=== PATIENT | female | born 1990 | race Caucasian/White ===

== ENCOUNTER → 2016-11-21 | Outpatient (CLI) | payer BC ==
[~2016-11-21] MED LIST: IBUP-1773 PO; PNV91TAB3 PO
--- OUTSIDE RECORDS SUMMARY | 2016-11-21 16:41 | XMS REPORT ---
Author Author ANITA WHITT Organization [employer] Address Unknown Phone Unavailable Care Team Providers Care Veneer Taping Machine Operator Name Role Phone ANITA WHITT Unavailable Allergies No Known Allergies Problems Problem Type Condition Code Onset Dates Condition Status Assessment Encounter for immunization Z23 Active Medications No Known Medications Procedures Procedure Coding System Code Date SINGLE IMMUNIZATION ADMIN CPT-4 77778 Jul 08, 2015 FLUARIX QUAD (3 & UP)-GSK-2014 CPT-4 45536 Jul 08, 2015 Results No Known Results Immunizations Vaccine Administration Date FLUARIX QUAD (3 & UP)-GSK-2014Jul 08, 2015 Summary Purpose [employer] Submission
--- NOTE | 2016-11-21 19:46 | Diagnostic Imaging Report ---
Transvaginal pelvic ultrasound. INDICATION: Heavy bleeding. Positive test. FINDINGS: The uterus is 6.2 x 2.4 x 4 cm. Endometrial stripe is 3 mm in thickness. There is no intrauterine seen at this time. The left ovary is 2.9 x 2.3 x 1.7 cm. There is a follicle measuring 1.3 cm with minimal internal echogenicity seen. The right ovary is obscured by bowel gas. No significant hemorrhage or solid mass seen. Trace amount of free fluid in the pelvis is noted. IMPRESSION: 1. The right ovary is not seen. Complicated follicle suggested measuring 1.3 cm in the left ovary. 2. No intrauterine is seen. Findings may be relate to normal , failed , or occult ectopic . Serial beta-hCG and followup ultrasound is suggested. Dictated by: Dictated on workstation # [id number]
== END ==
LOC: RAD 16:39
PROVIDERS: ATTEND Obstetrics & Gynecology
DX: O20.0 Threatened abortion (principal)
CPT/HCPCS: 76817

== ENCOUNTER 2016-12-20 05:57 | Day surgery (SDC) | payer BC ==
[~2016-12-20] VITALS: Ht 162.6 cm; Wt 77.1 kg
[2016-12-20] MEDS: LACTATED RINGERS 1,000 ML IV PRN ×2 (06:10→07:40)
[2016-12-20 06:20] VITALS: BP 112/51
[2016-12-20] MEDS ORDERED: proPOfol 200 MG/20 ML (DIPRIVAN) VIAL IV ONE (06:51)
[2016-12-20] MEDS ORDERED: MIDAZOLAM 2 MG/2 ML (VERSED) VIAL ONE (06:51)
[2016-12-20] MEDS ORDERED: ROCURONIUM 50 MG/5 ML (ZEMURON) VIAL IV ONE (06:51)
[2016-12-20] MEDS ORDERED: LIDOCAINE PF 2% 10 ML (XYLOCAINE) AMP ONE (06:51)
[2016-12-20] MEDS ORDERED: ONDANSETRON 4 MG/2 ML (SDV) Z0FRAN ONE (06:51)
[2016-12-20] MEDS ORDERED: LIDOCAINE JELLY 2% (XYLOCAINE) 5 ML TUBE ONE (06:51)
[2016-12-20] MEDS ORDERED: LACTATED RINGERS 1,000 ML IV ONE (06:51)
[2016-12-20] MEDS ORDERED: fentaNYL INJECTION 100 MCG/2 ML AMP ONE (06:52)
[2016-12-20 06:54] LABS: BASOPHILS # (AUTO) 0.1 10^3/uL (0.0-0.1); BASOPHILS % (AUTO) 1 % (0-10); EOSINOPHILS # (AUTO) 0.2 10^3/uL (0.0-0.3); EOSINOPHILS % (AUTO) 2 % (0-10); LYMPHOCYTES # (AUTO) 3.3 X 10^3 (1.0-4.0); LYMPHOCYTES % (AUTO) 38 % (12-44); MEAN CORPUSCULAR HEMOGLOBIN 29 PG (25-34); MEAN CORPUSCULAR HGB CONC 33 G/DL (32-36); MEAN CORPUSCULAR VOLUME 90 FL (80-99); MEAN PLATELET VOLUME 9.9 FL (7.4-10.4); MONOCYTES # (AUTO) 0.8 X 10^3 (0.0-1.0); MONOCYTES % (AUTO) 9 % (0-12); NEUTROPHILS # (AUTO) 4.5 X 10^3 (1.8-7.8); NEUTROPHILS % (AUTO) 51 % (42-75); PLATELET COUNT 269 10^3/uL (130-400); RED BLOOD COUNT 4.49 10^6/uL (4.35-5.85); RED CELL DISTRIBUTION WIDTH 13.7 % (10.0-14.5); WHITE BLOOD COUNT 8.9 10^3/uL (4.3-11.0)
--- NOTE | 2016-12-20 07:10 | Progress Note-Pre Operative ---
Pre-Operative Progress Note H&P Reviewed The H&P was reviewed, patient examined and no changes noted. Date H&P Reviewed: Dec 20, 2016 Time H&P Reviewed: 07:00 Pre-Operative Diagnosis: Incomplete Ab ULISES ENGLISH DO Dec 20, 2016 7:10 am
[2016-12-20] MEDS ORDERED: SEVOFLURANE (ULTANE) 15 ML INHAL SOLN ONE (07:33)
[2016-12-20] MEDS ORDERED: PNV91TAB3 PO ×2 (07:41)
[2016-12-20] MEDS ORDERED: D5 LR IV SOLUTION 1,000 ML IV SCH (07:54)
[2016-12-20] MEDS ORDERED: IBUP-1773 PO ×2 (07:57)
--- NOTE | 2016-12-20 07:58 | Discharge Inst-Women's Service ---
Discharge Inst-Women's Serv Depart Medication/Instructions New, Converted or Re-Newed RX: RX on Chart Consults/Follow Up Additional Follow Up: Yes Orders/Referrals Follow up on Saturday for lab draw, follow up with either Dr. Panchal or Dr. English in the next 2-3 weeks. Activity Activity: Activity as Tolerated Driving Instructions: You May Drive (do not drive today 12/20/2016) NO SMOKING: NO SMOKING Nothing Inside Vagina: No Douching, No Boron, No Tampons Diet Discharge Diet: No Restrictions Symptoms to Report to : Bleeding Excessive, Pain Increased, Fever Over 101 Degrees F, Vaginal Bleeding Increase, Questions/Concerns For Any Problems or Questions: Contact Your Physician Skin/Wound Care Bathing Instructions: Shower (x 1 week) ULISES ENGLISH DO Dec 20, 2016 07:58
[2016-12-20] MEDS ORDERED: KETOROLAC 30 MG/ML VIAL ONE (07:59)
[2016-12-20] MEDS ORDERED: ONDANSETRON 4 MG/2 ML (SDV) Z0FRAN IVP PRN ×2 (08:00)
[2016-12-20] MEDS ORDERED: morphine INJ 10 MG/ML 1ML (SYR OR VIAL) IVP PRN (08:00)
[2016-12-20] MEDS ORDERED: MEPERIDINE (DEMEROL) INJ 50 MG/ML IVP PRN (08:00)
[2016-12-20] MEDS ORDERED: APAP 300 MG/CODEINE 30 MG (TYLENOL #3) TAB PO ONE (08:00)
[2016-12-20] MEDS ORDERED: KETOROLAC 30 MG/ML VIAL IVP ONE (08:00)
[2016-12-20 08:40] VITALS: BP 118/73
[2016-12-20 09:10] VITALS: BP 113/73
[2016-12-20 09:15] VITALS: BP 113/73
--- NOTE | 2016-12-21 09:35 | OPERATIVE REPORT ---
PROCEDURE PHYSICIAN: ULISES ENGLISH DATE OF PROCEDURE: PREOPERATIVE DIAGNOSIS: 26-year-old female with incomplete . POSTOPERATIVE DIAGNOSES: 1. 26-year-old female with incomplete . 2. Some right adnexal fullness. PROCEDURE: Suction D\T\C. SURGEON: Dr. Ulises English. ANESTHESIA: LMA. ESTIMATED BLOOD LOSS: 50 mL. URINE OUTPUT: 100 mL, clear at the end of the procedure, drained by straight catheterization. FLUIDS: 1200 mL lactated ringer solution. FINDINGS: A nonenlarged uterus with a scant amount of endometrial tissue and products of conception collected as well as some mild right adnexal fullness appreciated on bimanual examination. Normal-appearing left ovary. SPECIMEN SENT: Products of conception INDICATIONS FOR THE PROCEDURE: This 26-year-old female is a patient of Dr. Panchal who has been followed for early . She had an appropriate rise in her beta-hCG, which was not conducive with a viable . The patient had left [facility] at that point and by the time she made it back to [facility] for follow-up beta-hCG, Dr. Panchal has also left and is not available. I followed up with the patient and her beta-hCG remained stable and this had been approximately 4 weeks since all of this had been noted and started. She had previously been offered conservative management. However, due to a heavy amount of bleeding she had been having throughout this week. She was requesting to go ahead and have definitive measures taken. I discussed with the patient suction D&C. The risk of the procedure were discussed with the patient in detail with her present. After all of their questions were answered, consent was obtained and patient was taken the operating room. OPERATIVE REPORT IN DETAIL: Once in the operating room, general anesthesia was found to be adequate. She was placed in the dorsal lithotomy position, prepped and draped in the normal sterile fashion. On bimanual examination there is a slight increase in fullness in the right adnexa. The left adnexa appears normal. The right adnexa margin may be a corpus luteum cyst, however, I do share concerns for potential ectopic ; the beta-hCG levels do not decline appropriately after the procedure. I then placed a weighted speculum in the patient's vagina. A right angle retractor using visualizing the cervix. It was grasped at the 12 o'clock position using a long Allis clamp. I then gently dilate the cervix using Hegar dilators to a maximum dilatation of 6 mm. I then gently curette the endometrial cavity using a medium size endometrial curette. A scant amount of tissue is collected at that point. I also perform suction curetting using a number 6 flexible Tulio suction curette. The curette is advanced into the endometrial cavity, suction is applied up to a maximum pressure of 60 mmHg at which point, I methodically rotate the suction curette clearing the endometrial cavity of all clots and debris and products of conception. I then remove this device. There is no active bleeding noted after removed this device. I then remove the Allis clamp and the other weighted speculum from the patient's vagina and drained the bladder using straight catheterization. The patient tolerated the procedure well and was taken to recovery area in stable condition. Lap and sponge count is correct at the end of procedure, instrument count was correct as well. Job ID: [id number] Dictated Date: 12/20/2016 08:05:40 Watchstander Date: 12/21/2016 09:25:57 / clari MEAD
--- OUTSIDE RECORDS SUMMARY | 2017-01-13 05:39 | XMS REPORT ---
Author Author ANITA WHITT [facility] e[employer] Address Unknown Phone Unavailable Care Team Providers Care Airport Maintenance Chief Name Role Phone ANITA WHITT CP Unavailable Allergies, Adverse Reactions, Alerts Substance Reaction Event Type Suprax hives Drug Allergy Problems Problem Type Condition Code Onset Dates Condition Status Assessment Cough R05 Active Assessment Otitis media H66.90 Active Medications Medication Code System Code Instructions Start Date End Date Status Dosage Amoxicillin [facility] [address]-96 875 MG Orally Twice a day Oct 28, 2015 Nov 07, 2015 1 tablet Procedures Procedure Coding System Code Date Office Visit, New Pt., Level 2 CPT-4 12181 Oct 28, 2015 Vital Signs Date/Time: Oct 28, 2015 Temperature 98.2 F Weight 173.6 lbs Height 64 in Oximetry 100 % Blood Pressure Diastolic 80 mmHg Blood Pressure Systolic 120 mmHg Cardiac Monitoring Heart Rate 72 bpm BMI 29.80 Index Results No Known Results Summary Purpose [employer]ClinicalWorks Submission
--- OUTSIDE RECORDS SUMMARY | 2017-01-13 05:39 | XMS REPORT ---
Author Author ANITA WHITT Organization [employer] Address Unknown Phone Unavailable Care Team Providers Care Director Of Finance Name Role Phone ANITA WHITT Unavailable Allergies No Known Allergies Problems Problem Type Condition Code Onset Dates Condition Status Assessment Encounter for immunization Z23 Active Medications No Known Medications Procedures Procedure Coding System Code Date SINGLE IMMUNIZATION ADMIN CPT-4 03262 Jul 08, 2015 FLUARIX QUAD (3 & UP)-GSK-2014 CPT-4 03553 Jul 08, 2015 Results No Known Results Immunizations Vaccine Administration Date FLUARIX QUAD (3 & UP)-GSK-2014Jul 08, 2015 Summary Purpose [employer]ClinicalWorks Submission
--- OUTSIDE RECORDS SUMMARY | 2017-01-13 05:39 | XMS REPORT ---
Author Author ANITA WHITT [facility] e[employer] Address Unknown Phone Unavailable Care Team Providers Care Certified Residential Medication Aide Name Role Phone ANITA WHITT Unavailable Allergies No Known Allergies Problems Problem Type Condition Code Onset Dates Condition Status Assessment Encounter for immunization Z23 Active Medications No Known Medications Procedures Procedure Coding System Code Date SINGLE IMMUNIZATION ADMIN CPT-4 38875 Jul 11, 2015 TDAP (BOOSTRIX) CPT-4 92621 Jul 11, 2015 Results No Known Results Immunizations Vaccine Administration Date TDAP (BOOSTRIX) Jul 11, 2015 Summary Purpose eClinicalWorks Submission
== END 2016-12-20 09:35 | disposition home or self-care (01) ==
LOC: DELPENDDIS → SDC 05:57
PROVIDERS: ATTEND Obstetrics & Gynecology
DX: O03.1 Delayed or excessive hemorrhage following incomplete spontaneous abortion (principal)
CPT/HCPCS: 36415; 85025; 86850; 86900; 86901; 87081; 88305; 94664

== ENCOUNTER → 2016-12-25 | Outpatient (CLI) | payer BC ==
--- NOTE | 2016-12-25 16:50 | Diagnostic Imaging Report ---
EXAMINATION: Pelvic ultrasound. INDICATION: Abnormal human chorionic gonadotropin. FINDINGS: The recent pelvic ultrasound exam performed on 11/21/2016 failed to show any sign of a gestational sac within the uterus. On this exam, the uterus remains nongravid. The endometrial lining is not thickened measuring 4-5 mm. There is no focal mass involving the uterus to suggest a fibroid. The previous exam did note a 1.3 cm cyst associated with the left ovary. That finding is not well visualized on this exam. There are few subcentimeter follicles on each ovary. There is no solid pelvic mass or free fluid collection to suggest an ectopic . IMPRESSION: 1. There is still no evidence for a gestational sac within the uterus. There is no pelvic mass or free fluid collection noted to indicate an ectopic either. Correlation with the patient's beta hCG levels would be recommended. 2. These results were discussed with Dr. Laine Panchal. Dictated by: Dictated on workstation # [id number]
== END ==
LOC: RAD 15:37
PROVIDERS: ATTEND Obstetrics & Gynecology
DX: R79.9 Abnormal finding of blood chemistry, unspecified (principal)
CPT/HCPCS: 76817

== ENCOUNTER → 2017-09-10 | Outpatient (CLI) | payer BC | LOC: LABNPT 16:49 | PROVIDERS: ATTEND Obstetrics & Gynecology | DX: Z34.83 Encounter for supervision of other normal pregnancy, third trimester (principal); R50.9 Fever, unspecified; R00.0 Tachycardia, unspecified | CPT/HCPCS: 87804 ==

== ENCOUNTER 2017-09-19 05:14 | Outpatient (CLI) | payer BC ==
[~2017-09-19] VITALS: Ht 162.6 cm; Wt 88.0 kg
[2017-09-19 05:25] VITALS: BP 124/81
[2017-09-19] MEDS ORDERED: D5 LR IV SOLUTION 1,000 ML IV SCH (05:30)
[2017-09-19] MEDS ORDERED: ONDANSETRON 4 MG/2 ML (SDV) Z0FRAN IVP ONE (05:30)
[2017-09-19 05:56] LABS: BASOPHILS % (AUTO) 0 % (0-10); EOSINOPHILS # (AUTO) 0.1 10^3/uL (0.0-0.3); EOSINOPHILS % (AUTO) 1 % (0-10); HEMATOCRIT 37 % (35-52); HEMOGLOBIN 12.7 G/DL (11.5-16.0); LYMPHOCYTES # (AUTO) 0.8 X 10^3 (1.0-4.0); LYMPHOCYTES % (AUTO) 6 % (12-44); MEAN CORPUSCULAR HEMOGLOBIN 30 PG (25-34); MEAN CORPUSCULAR HGB CONC 34 G/DL (32-36); MEAN CORPUSCULAR VOLUME 88 FL (80-99); MONOCYTES # (AUTO) 0.4 X 10^3 (0.0-1.0); MONOCYTES % (AUTO) 3 % (0-12); NEUTROPHILS % (AUTO) 90 % (42-75); PLATELET COUNT 214 10^3/uL (130-400); RED BLOOD COUNT 4.24 10^6/uL (4.35-5.85); RED CELL DISTRIBUTION WIDTH 13.4 % (10.0-14.5); WHITE BLOOD COUNT 13.3 10^3/uL (4.3-11.0)
[2017-09-19 06:18] LABS: BAND NEUTROPHILS 1 %; BASOPHILS % (MANUAL) 0 %; EOSINOPHILS % (MANUAL) 1 %; LYMPHOCYTES % (MANUAL) 6 %; MONOCYTES % (MANUAL) 2 %; NEUTROPHILS % (MANUAL) 86 %; RBC MORPH NORMAL; REACTIVE LYMPHOCYTES 4 %
[2017-09-19 06:19] LABS: ALANINE AMINOTRANSFERASE 27 U/L (0-55); ALBUMIN 3.3 GM/DL (3.2-4.5); ALKALINE PHOSPHATASE 163 U/L (40-136); BILIRUBIN,TOTAL 0.7 MG/DL (0.1-1.0); BUN/CREATININE RATIO 15; CALCIUM 8.7 MG/DL (8.5-10.1); CARBON DIOXIDE 19 MMOL/L (21-32); CHLORIDE 107 MMOL/L (98-107); CREATININE SERUM 0.59 MG/DL (0.60-1.30); GFR ESTIMATED > 60; GLUCOSE 85 MG/DL (70-105); POTASSIUM 3.7 MMOL/L (3.6-5.0); SODIUM 139 MMOL/L (135-145); TOTAL PROTEIN 6.3 GM/DL (6.4-8.2)
--- NOTE | 2017-09-19 08:01 | History & Physical-OB ---
OB - Chief Complaint & HPI Date/Time Date of Admission: Date of Admission: Time Seen by Provider: 07:45 Chief Complaint/History OB-Reason for Admission/Chief: Hx : 2 Hx Para: 0 Expected Date of Delivery: Oct 21, 2017 Gestational Age in Weeks: 35 Other reason for admission: Nausea and vomiting x 6 last evening, reports that she was feeling fine yesterday but overnight became violently ill. She denies fevers, chill or upper respiratory symptoms Admission Nurse Assessment Rev: Yes History of Labs Laboratory Tests Test 09/19/17 05:45 Range/Units White Blood Count 13.3 H 4.3-11.0 10^3/uL Red Blood Count 4.24 L 4.35-5.85 10^6/uL Hemoglobin 12.7 11.5-16.0 G/DL Hematocrit 37 35-52 % Mean Corpuscular Volume 88 80-99 FL Mean Corpuscular Hemoglobin 30 25-34 PG Mean Corpuscular Hemoglobin Concent 34 32-36 G/DL Red Cell Distribution Width 13.4 10.0-14.5 % Platelet Count 214 130-400 10^3/uL Mean Platelet Volume 11.0 H 7.4-10.4 FL Neutrophils (%) (Auto) 90 H 42-75 % Lymphocytes (%) (Auto) 6 L 12-44 % Monocytes (%) (Auto) 3 0-12 % Eosinophils (%) (Auto) 1 0-10 % Basophils (%) (Auto) 0 0-10 % Neutrophils # (Auto) 12.0 H 1.8-7.8 X 10^3 Lymphocytes # (Auto) 0.8 L 1.0-4.0 X 10^3 Monocytes # (Auto) 0.4 0.0-1.0 X 10^3 Eosinophils # (Auto) 0.1 0.0-0.3 10^3/uL Basophils # (Auto) 0.0 0.0-0.1 10^3/uL Neutrophils % (Manual) 86 % Lymphocytes % (Manual) 6 % Monocytes % (Manual) 2 % Eosinophils % (Manual) 1 % Basophils % (Manual) 0 % Band Neutrophils 1 % Reactive Lymphocytes 4 % Blood Morphology Comment NORMAL Sodium Level 139 135-145 MMOL/L Potassium Level 3.7 3.6-5.0 MMOL/L Chloride Level 107 98-107 MMOL/L Carbon Dioxide Level 19 L 21-32 MMOL/L Anion Gap 13 5-14 MMOL/L Blood Urea Nitrogen 9 7-18 MG/DL Creatinine 0.59 L 0.60-1.30 MG/DL Estimat Glomerular Filtration Rate > 60 BUN/Creatinine Ratio 15 Glucose Level 85 70-105 MG/DL Calcium Level 8.7 8.5-10.1 MG/DL Total Bilirubin 0.7 0.1-1.0 MG/DL Aspartate Amino Transf (AST/SGOT) 21 5-34 U/L Alanine Aminotransferase (ALT/SGPT) 27 0-55 U/L Alkaline Phosphatase 163 H 40-136 U/L Total Protein 6.3 L 6.4-8.2 GM/DL Albumin 3.3 3.2-4.5 GM/DL GBS unknown Abn Quad with elevated AFP Allergies and Home Medications Allergies Coded Allergies: No Known Drug Allergies (Unverified , 09/19/17) Home Medications Pnv95/Ferrous Fumarate/FA 1 Each Tablet, 1 EACH PO DAILY, (Reported) OB - History Hx of Present Care: Yes Ultrasounds: Normal mid trimester US Obstetrical Complications: Other (abn quad) Medical Complications: None Obstetrical History Hx : 2 Hx Para: 0 Hx Total # of Abortions (Spona: 1 Delivery History Hx Blood Disorders: No Patient Past Medical History n/a Social History/Family History Recent Infectious Disease Expo: No Immunizations Date of Influenza Vaccine: Jul 10, 2017 OB - Admission Exam Physical Exam Vitals: Vital Signs 09/19/17 09/19/17 05:25 05:51 Temp 99.8 Pulse 98 Resp 18 B/P (MAP) 124/81 (95) O2 Delivery Room Air HEENT: NCAT Heart: Rhythm Normal Lungs: Clear Abdomen: Gravid Extremities: Normal Reflexes: Normal Heart Rate: 130's Accelerations: Accelerations Present Decelerations: No Decelerations Short Term Variability: Present Snf Variability: Average (6-25) Contractions on Admission: >10 Minutes Apart Labs Laboratory Tests Test 09/19/17 05:45 Range/Units White Blood Count 13.3 H 4.3-11.0 10^3/uL Red Blood Count 4.24 L 4.35-5.85 10^6/uL Hemoglobin 12.7 11.5-16.0 G/DL Hematocrit 37 35-52 % Mean Corpuscular Volume 88 80-99 FL Mean Corpuscular Hemoglobin 30 25-34 PG Mean Corpuscular Hemoglobin Concent 34 32-36 G/DL Red Cell Distribution Width 13.4 10.0-14.5 % Platelet Count 214 130-400 10^3/uL Mean Platelet Volume 11.0 H 7.4-10.4 FL Neutrophils (%) (Auto) 90 H 42-75 % Lymphocytes (%) (Auto) 6 L 12-44 % Monocytes (%) (Auto) 3 0-12 % Eosinophils (%) (Auto) 1 0-10 % Basophils (%) (Auto) 0 0-10 % Neutrophils # (Auto) 12.0 H 1.8-7.8 X 10^3 Lymphocytes # (Auto) 0.8 L 1.0-4.0 X 10^3 Monocytes # (Auto) 0.4 0.0-1.0 X 10^3 Eosinophils # (Auto) 0.1 0.0-0.3 10^3/uL Basophils # (Auto) 0.0 0.0-0.1 10^3/uL Neutrophils % (Manual) 86 % Lymphocytes % (Manual) 6 % Monocytes % (Manual) 2 % Eosinophils % (Manual) 1 % Basophils % (Manual) 0 % Band Neutrophils 1 % Reactive Lymphocytes 4 % Blood Morphology Comment NORMAL Sodium Level 139 135-145 MMOL/L Potassium Level 3.7 3.6-5.0 MMOL/L Chloride Level 107 98-107 MMOL/L Carbon Dioxide Level 19 L 21-32 MMOL/L Anion Gap 13 5-14 MMOL/L Blood Urea Nitrogen 9 7-18 MG/DL Creatinine 0.59 L 0.60-1.30 MG/DL Estimat Glomerular Filtration Rate > 60 BUN/Creatinine Ratio 15 Glucose Level 85 70-105 MG/DL Calcium Level 8.7 8.5-10.1 MG/DL Total Bilirubin 0.7 0.1-1.0 MG/DL Aspartate Amino Transf (AST/SGOT) 21 5-34 U/L Alanine Aminotransferase (ALT/SGPT) 27 0-55 U/L Alkaline Phosphatase 163 H 40-136 U/L Total Protein 6.3 L 6.4-8.2 GM/DL Albumin 3.3 3.2-4.5 GM/DL OB - Assessment/Plan/Diagnosis Plan Other Plan IVF hydration BPP today as was scheduled in office. Discharge Diagnosis Diagnosis: 26 yo @ 35 weeks Acute gastroenteritis Influenza A last week treated with Tamiflu GBS unknown Hx of Abn Quad- elevated AFP ULISES ENGLISH DO Sep 19, 2017 8:01 am
[2017-09-19 09:00] VITALS: BP 120/77
--- NOTE | 2017-09-19 13:22 | Diagnostic Imaging Report ---
Pelvic Ultrasound. Biophysical profile. INDICATION: Abnormal quad screen. FINDINGS: heart rate is 147 beats per minutes. position is cephalic. Total SUZETTE is 10.7 cm. All the biophysical profile criteria are met with total score of 8 out of 8. IMPRESSION: Total biophysical profile score is 8 out of 8. Dictated by: Dictated on workstation # [id number]
== END 2017-09-19 10:50 | disposition home or self-care (01) ==
LOC: WSo 05:14 → LDRP 05:15 → WSo 10:50
PROVIDERS: ATTEND Obstetrics & Gynecology
DX: K52.9 Noninfective gastroenteritis and colitis, unspecified (principal); Z3A.35 35 weeks gestation of pregnancy
CPT/HCPCS: 36415; 76819; 80053; 85007; 85027; 87081; 96360; 96361; 99214

== ENCOUNTER 2017-10-10 00:41 | Inpatient (IN) | payer BC ==
[~2017-10-10] VITALS: Ht 162.6 cm; Wt 91.6 kg
[2017-10-10] VITALS (36 sets, daily range): BP systolic 120–163; BP diastolic 62–103
--- OUTSIDE RECORDS SUMMARY | 2017-10-10 01:23 | XMS REPORT | Encounter Summary ---
Author Author [facility] Organization [facility] Address Unknown Phone Unavailable Care Team Providers Care Medical Fee Clerk Name Role Phone PCP Unavailable Reason for Visit * Reason Comments Ultrasound Encounter Details Date Type Department Care Team Description 08/30/2017 Clinical [facility] Abnormal amniotic fluid Support Physicians - OBGYN alpha-fetoprotein [address] measurement (Primary Dx) [place] [address] Social History Tobacco Use Types Packs/Day Years Used Date Never Assessed Sex Assigned at Date Recorded Not on file as of this encounter Progress Notes * Milka Gallagher MA - 08/30/2017 10:00 AM DIGITAL MARKETING INTERN Sandie Porsche presents for an ultrasound encounter. Past Medical, Surgical, Family & Social History; Medications & Allergies contained in the electronic record below were not reviewed today and may not be up-to-date. Please see A/S OBGYN report for all documentation related to this encounter. 10/02/2017 Milka Gallagher MA in this encounter Plan of Treatment Not on fileas of this encounter Results * ULTRASOUND [facility] ORDER (08/30/2017) Specimen Performing Laboratory IN CLINIC in this encounter Visit Diagnoses Diagnosis Abnormal amniotic fluid alpha-fetoprotein measurement - Primary Abnormal findings on screening in this encounter
--- OUTSIDE RECORDS SUMMARY | 2017-10-10 01:23 | XMS REPORT | Encounter Summary ---
Author Author [facility] Organization [facility] Address Unknown Phone Unavailable Care Team Providers Care Sock Lining Stitcher Name Role Phone PCP Unavailable Reason for Visit * Reason Comments Ultrasound Encounter Details Date Type Department Care Team Description 08/02/2017 Clinical [facility] Abnormal biochemical Support Physicians [place] [address] screening of mother [place], [place] (Primary Dx) [id number] Social History Tobacco Use Types Packs/Day Years Used Date Never Assessed Sex Assigned at Date Recorded Not on file as of this encounter Progress Notes * Milka Gallagher MA - 08/02/2017 9:30 AM ASSISTANT PROFESSOR OF PHILOSOPHY Sandie Porsche presents for an ultrasound encounter. Past Medical, Surgical, Family & Social History; Medications & Allergies contained in the electronic record below were not reviewed today and may not be up-to-date. Please see A/S OBGYN report for all documentation related to this encounter. 08/28/2017 Milka Gallagher MA in this encounter Plan of Treatment Not on fileas of this encounter Results * [facility] ORDER (08/02/2017) Specimen Performing Laboratory IN CLINIC in this encounter Visit Diagnoses Diagnosis Abnormal biochemical finding on screening of mother - Primary Abnormal findings on screening in this encounter
--- OUTSIDE RECORDS SUMMARY | 2017-10-10 01:23 | XMS REPORT | Continuity of Care Document ---
Author Author [facility] Organization [facility] Address Unknown Phone Unavailable Care Team Providers Care Pit Crane Operator Name Role Phone [employer] Unavailable Unavailable Problems Medications Allergies, Adverse Reactions, Alerts Immunizations Results Vital Signs Encounters Location Location Details Encounter Type Encounter Number Reason For Visit Attending Provider ADM Date DC Date Status Source O 08/30/2017 08/30/2017 Active [facility] Procedures Plan of Care Social History Assessment and Plan Family History Advance Directives Functional Status
--- OUTSIDE RECORDS SUMMARY | 2017-10-10 01:23 | XMS REPORT | Clinical Summary ---
Author Author [facility] Organization [facility] Address Unknown Phone Unavailable Care Team Providers Care Deli Slicer Name Role Phone PCP Unavailable Source Comments Some departments are not documenting in the electronic medical record. If you do not see the information that you expected, contact Release of Information in the Health Information Management department at [phone] for further assistance in locating additional records.[facility] Allergies Not on File Current Medications Not on file Active Problems Not on file Encounters Date Type Specialty Care Team Description 08/30/2017 Clinical [facility] Abnormal amniotic fluid Support alpha-fetoprotein measurement (Primary Dx) 08/02/2017 Clinical High Risk Abnormal biochemical Support finding on screening of mother (Primary Dx) from Last 3 Months Social History Tobacco Use Types Packs/Day Years Used Date Never Assessed Sex Assigned at Date Recorded Not on file Last Filed Vital Signs Not on file Plan of Treatment Health Maintenance Due Date Last Done Comments PHYSICAL (COMPREHENSIVE) 1997 EXAM PERTUSSIS VACCINE 2001 TETANUS VACCINE 2007 CERVICAL CANCER SCREENING 2011 INFLUENZA VACCINE 04/23/2017 HPV VACCINES Aged Out No longer eligible based on patient's age to complete this topic Results * ULTRASOUND [facility] ORDER (08/30/2017) Only the most recent of 2 results within the time period is included. Specimen Performing Laboratory IN CLINIC from Last 3 Months
[2017-10-10] MEDS ORDERED: D5 LR IV SOLUTION 1,000 ML IV SCH (02:58)
[2017-10-10 03:40] LABS: BASOPHILS % (AUTO) 0 % (0-10); EOSINOPHILS # (AUTO) 0.1 10^3/uL (0.0-0.3); EOSINOPHILS % (AUTO) 0 % (0-10); HEMATOCRIT 40 % (35-52); HEMOGLOBIN 13.6 G/DL (11.5-16.0); LYMPHOCYTES # (AUTO) 2.1 X 10^3 (1.0-4.0); LYMPHOCYTES % (AUTO) 11 % (12-44); MEAN CORPUSCULAR HEMOGLOBIN 30 PG (25-34); MEAN CORPUSCULAR HGB CONC 34 G/DL (32-36); MEAN CORPUSCULAR VOLUME 88 FL (80-99); MEAN PLATELET VOLUME 11.3 FL (7.4-10.4); MONOCYTES # (AUTO) 0.8 X 10^3 (0.0-1.0); MONOCYTES % (AUTO) 4 % (0-12); NEUTROPHILS # (AUTO) 15.7 X 10^3 (1.8-7.8); NEUTROPHILS % (AUTO) 84 % (42-75); PLATELET COUNT 216 10^3/uL (130-400); RED CELL DISTRIBUTION WIDTH 14.1 % (10.0-14.5); WHITE BLOOD COUNT 18.7 10^3/uL (4.3-11.0)
[2017-10-10] MEDS ORDERED: SUFENTA 0.6MCG/ML BUPIVA 0.125 100 ML ONE ×2 (03:40→04:13)
[2017-10-10 04:04] LABS: BAND NEUTROPHILS 0 %; BASOPHILS % (MANUAL) 0 %; EOSINOPHILS % (MANUAL) 0 %; LYMPHOCYTES % (MANUAL) 8 %; MONOCYTES % (MANUAL) 3 %; NEUTROPHILS % (MANUAL) 87 %; RBC MORPH NORMAL; REACTIVE LYMPHOCYTES 2 %
[2017-10-10] MEDS ORDERED: LIDOCAINE PF 2% 5 ML (XYLOCAINE) VIAL ONE (04:12)
[2017-10-10] MEDS ORDERED: BUPIVACAINE 0.25% 30 ML (SENSORCAINE) VIAL ONE (04:12)
[2017-10-10] MEDS ORDERED: fentaNYL INJECTION 100 MCG/2 ML AMP ONE (04:13)
[2017-10-10] MEDS ORDERED: LACTATED RINGERS 1,000 ML IV ONE ×2 (04:56)
[2017-10-10] MEDS ORDERED: NALOXONE 0.4 MG/ML 1 ML (NARCAN) VIAL IV PRN (05:00)
[2017-10-10] MEDS ORDERED: ONDANSETRON 4 MG/2 ML (SDV) Z0FRAN IV PRN (05:00)
[2017-10-10] MEDS ORDERED: EPIDURAL (SUFENTA 0.6MCG/ML BUPIVA 0.125%) 100 ML BAG EPI PRN (05:00)
[2017-10-10] MEDS ORDERED: CATHETER FLUSH 10 ML SYR IV SCH ×2 (06:00→14:00)
--- NOTE | 2017-10-10 07:20 | History & Physical-OB ---
OB - Chief Complaint & HPI Date/Time Date of Admission: Date of Admission: Oct 10, 2017 at 2:56 am Time Seen by Provider: 06:55 Chief Complaint/History OB-Reason for Admission/Chief: Onset of Labor Hx : 2 Hx Para: 0 Expected Date of Delivery: Oct 21, 2017 Gestational Age in Weeks: 38 Admission Nurse Assessment Rev: Yes History of Labs O pos Antibody neg RI RPR NR HBsAg NR HIV NR GC neg GBS neg Allergies and Home Medications Allergies Coded Allergies: No Known Drug Allergies (Unverified , 09/19/17) Home Medications Pnv95/Ferrous Fumarate/FA 1 Each Tablet, 1 EACH PO DAILY, (Reported) OB - History Hx of Present Care: Yes Ultrasounds: Normal mid trimester US Obstetrical Complications: None Medical Complications: None Obstetrical History Hx : 2 Hx Para: 0 Hx Total # of Abortions (Spona: 1 Delivery History Hx Blood Disorders: No Patient Past Medical History n/a Social History/Family History HIV/AIDS: No Recent Infectious Disease Expo: No Sexually Transmitted Disease: No Alcohol Use: Denies Use Recreational Drug Use: No Immunizations Date of Influenza Vaccine: Jul 10, 2017 OB - Admission Exam Physical Exam Vitals: Vital Signs 10/10/17 10/10/17 04:12 05:02 Temp 97.9 Pulse 80 Resp 16 B/P (MAP) 130/66 (87) Pulse Ox 100 O2 Delivery Room Air HEENT: NCAT Heart: Rhythm Normal Lungs: Clear Abdomen: Gravid Extremities: Normal Cervical Dilatation: 6cm Effacement: 100% Station: 0 Membranes: Intact Heart Rate: 130's Accelerations: Accelerations Present Decelerations: No Decelerations Short Term Variability: Present Multi Mission Helicopter Aircrewman Variability: Average (6-25) Contractions on Admission: < 5 Minutes Apart Intensity: Mild Labs Laboratory Tests Test 10/10/17 03:20 Range/Units White Blood Count 18.7 H 4.3-11.0 10^3/uL Red Blood Count 4.50 4.35-5.85 10^6/uL Hemoglobin 13.6 11.5-16.0 G/DL Hematocrit 40 35-52 % Mean Corpuscular Volume 88 80-99 FL Mean Corpuscular Hemoglobin 30 25-34 PG Mean Corpuscular Hemoglobin Concent 34 32-36 G/DL Red Cell Distribution Width 14.1 10.0-14.5 % Platelet Count 216 130-400 10^3/uL Mean Platelet Volume 11.3 H 7.4-10.4 FL Neutrophils (%) (Auto) 84 H 42-75 % Lymphocytes (%) (Auto) 11 L 12-44 % Monocytes (%) (Auto) 4 0-12 % Eosinophils (%) (Auto) 0 0-10 % Basophils (%) (Auto) 0 0-10 % Neutrophils # (Auto) 15.7 H 1.8-7.8 X 10^3 Lymphocytes # (Auto) 2.1 1.0-4.0 X 10^3 Monocytes # (Auto) 0.8 0.0-1.0 X 10^3 Eosinophils # (Auto) 0.1 0.0-0.3 10^3/uL Basophils # (Auto) 0.0 0.0-0.1 10^3/uL Neutrophils % (Manual) 87 % Lymphocytes % (Manual) 8 % Monocytes % (Manual) 3 % Eosinophils % (Manual) 0 % Basophils % (Manual) 0 % Band Neutrophils 0 % Reactive Lymphocytes 2 % Blood Morphology Comment NORMAL OB - Assessment/Plan/Diagnosis Assessment Assessment: active labor Discharge Diagnosis Diagnosis: 27 yo @ 38.2 Active labor GBS neg ULISES ENGLISH DO Oct 10, 2017 7:20 am
[2017-10-10] MEDS ORDERED: OXYTOCIN/NORMAL SALINE 500 ML IV ONE (07:50)
[2017-10-10] MEDS ORDERED: LIDOCAINE/EPI 2% 1:200,00 (XYLOCAINE) 10 ML VIAL ONE ×2 (08:21→08:22)
[2017-10-10] MEDS: OXYTOCIN/NORMAL SALINE 500 ML IV SCH ×2 (08:49→09:29)
--- NOTE | 2017-10-10 09:17 | OB Labor & Delivery Record ---
L&D History Date of Service Date of Service: Oct 10, 2017 History Expected Date of Delivery: Oct 21, 2017 Gestational Age in Weeks: 38 Hx : 2 Hx Para: 0 Complications Events: Routine care Operative Indications (Cesarea: N/A-Vaginal Delivery Intrapartal Events: None Other Complications heart rate suggestive of intolerance of second stage prompted to do VAVD. L&D Stage1 Stage One Onset of Labor - Date: Oct 10, 2017 Monitors and Tracing Monitor Mode: External Heart Rate: 140 Monitor Accelerations: Uniform Monitor Decelerations: None Station: -1 Abstractor Variability: Moderate (11-25) Short Term Variability: Present Presentation: Vertex Vital Signs VS - Last 72 Hours, by Label 10/10/17 10/10/17 10/10/17 10/10/17 01:00 01:10 04:12 04:22 Temp 98.0 98.0 97.9 Pulse 103 82 99 113 Resp 18 16 B/P (MAP) 120/69 (86) 120/69 (86) 139/71 (93) 147/79 (101) Pulse Ox 97 97 98 92 O2 Delivery Room Air Room Air Room Air Room Air 10/10/17 10/10/17 10/10/17 10/10/17 04:25 04:30 04:33 04:37 Pulse 105 125 120 96 B/P (MAP) 163/88 (113) 133/73 (93) 150/103 (119) 130/73 (92) Pulse Ox 100 98 98 100 O2 Delivery Room Air Room Air Room Air Room Air 10/10/17 10/10/17 10/10/17 10/10/17 04:42 04:45 04:52 04:57 Pulse 88 92 80 87 B/P (MAP) 139/72 (94) 131/69 (89) 132/81 (98) Pulse Ox 100 100 100 100 O2 Delivery Room Air Room Air Room Air Room Air 10/10/17 10/10/17 10/10/17 10/10/17 05:02 05:25 05:40 05:54 Pulse 80 90 84 85 B/P (MAP) 130/66 (87) 137/68 (91) 131/75 (93) 128/71 (90) Pulse Ox 100 99 100 99 O2 Delivery Room Air Room Air Room Air Room Air 10/10/17 10/10/17 10/10/17 10/10/17 06:10 06:25 06:40 06:55 Pulse 88 81 84 83 B/P (MAP) 135/70 (91) 129/67 (87) 131/71 (91) 120/69 (86) Pulse Ox 99 99 99 100 O2 Delivery Room Air Room Air Room Air Room Air Rupture of Membranes Spontaneous Ruture of Membrane: Yes Amniotic Membrane Rupture Time: 0642 Amniotic Membrane Fluid Desc.: Clear Vaginal Bleeding Description: Normal Show Induction/Anesthesia Epidural Cath Placement - Time: 426 Progress/Notes Patient progressed spontaneously to complete and +1 L&D Stage2 Stage Two Stage II Date: Oct 10, 2017 Monitors and Tracing Monitor Mode: External Heart Rate: 140 Monitor Accelerations: None Monitor Decelerations: Variable Abstractor Variability: Marked (>25) Short Term Variability: Present Position: Left Occiput Anterior Presentation: Vertex Signs of Distress by FHT Signs of Distress Repetitive deep decelerations into the 80s to 90s with each contraction were noted as well as changes in the baseline and marked variability became apparent. I was suspicious for a possible partial placental abruption due to intolerance of second stage of labor and the fact that the presenting part was placed 2 station posterior to the retractor to the mid sagittal suture line and applied to 500 mg of mercury pressure within the next maternal push and gentle downward traction I was able to extend the head around the pubic bone and allowing for delivery over a right mediolateral episiotomy. At which point resting pressure was released and the Kiwi was removed. Anterior posterior shoulders were delivered without difficulty and the was brought on to maternal abdomen Cord Descript/Complications Cord Vessel Description: 3 Vessels Delivery Type Delivery Method: Low Vacuum Extraction Anterior Shoulder: Right Episiotomy/Perineal Laceration Laceraction(s)/Extensions: No Episiotomy Description: Right Mediolateral Location Modifier: Right Degree (describe repair) Right mediolateral episiotomy performed and repaired using 20 and 3-0 Vicryl suture in usual fashion Condition of Delivery 1 minute Comment: 9 5 minute Comment: 9 Notes Live male weight pending Condition of Infant Condition of Infant: Living Exam: No Observed Abnormalities Resuscitation Resuscitation: N/A - Spontaneous Resp L&D Stage3 Stage Three Stage III Date: Oct 10, 2017 Pictocin Pitocin Administration Comment: 30 mu wide open at delivery of placenta Placenta Delivery Placenta Delivery: Spontaneous Delivery Summary Summary Estimated blood loss (mL): 350 350 Attending at delivery: Ulises English DO Condition of Delivery Examined: Cervix Examined, Uterus Explored Post Hemorrhage: No Condition of Mother stable Condition of Infant (s) stable ULISES ENGLISH DO Oct 10, 2017 9:17 am
--- NOTE | 2017-10-10 09:25 | Discharge Inst-Women's Service ---
Discharge Inst-Women's Serv Depart Medication/Instructions New, Converted or Re-Newed RX: RX on Chart Final Diagnosis VAVD Consults/Follow Up Additional Follow Up: Yes Orders/Referrals Dr. English in 6 weeks Activity Activity: Activity as Tolerated Driving Instructions: No Driving for 1 Week NO SMOKING: NO SMOKING Nothing Inside Vagina: No Douching, No Christmas, No Tampons Diet Discharge Diet: No Restrictions Symptoms to Report to : Bleeding Excessive, Pain Increased, Fever Over 101 Degrees F, Vaginal Bleeding Increase, Questions/Concerns For Any Problems or Questions: Contact Your Physician Skin/Wound Care Bathing Instructions: Shower (x 2 weeks) ULISES ENGLISH DO Oct 10, 2017 9:25 am
[2017-10-10] MEDS ORDERED: DOCU100C37 PO (09:27)
[2017-10-10] MEDS ORDERED: Benzocaine/Menthol TP (09:27)
[2017-10-10] MEDS ORDERED: ACHD5005 PO (09:27)
[2017-10-10] MEDS ORDERED: IBUP-1773 PO (09:27)
[2017-10-10] MEDS ORDERED: FERR325T18 PO (09:27)
[2017-10-10] MEDS ORDERED: MEASLES,MUMPS,RUBELLA 1 EA INJ SQ ONE (09:30)
[2017-10-10] MEDS ORDERED: HYDROcodone/APAP 5 MG/325 MG (LORTAB) TAB PO PRN (09:30)
[2017-10-10] MEDS ORDERED: TETANUS,DIPTH,PERTUSS P/F (BOOSTRIX) 0.5 ML VIAL IM ONE (09:30)
[2017-10-10] MEDS ORDERED: DIBUCAINE (NUPERCAINAL) 1% OINT 30 GM TOP PRN (09:30)
[2017-10-10] MEDS: WITCH HAZEL(TUCKS) 40 EA JAR TOP PRN (09:46)
[2017-10-10] MEDS: BENZOCAINE/MENTHOL (DERMOPLAST) 56 ML CAN TP PRN (09:46)
[2017-10-10] MEDS: IBUPROFEN 600 MG (MOTRIN) TAB PO SCH ×3 (09:46→21:43)
[2017-10-10] MEDS: DOCUSATE SODIUM 100 MG (COLACE) CAP PO SCH (21:43)
[2017-10-11 03:00] VITALS: BP 115/65
[2017-10-11] MEDS: IBUPROFEN 600 MG (MOTRIN) TAB PO SCH ×4 (03:01→21:05)
[2017-10-11 05:41] LABS: BASOPHILS % (AUTO) 0 % (0-10); EOSINOPHILS # (AUTO) 0.1 10^3/uL (0.0-0.3); EOSINOPHILS % (AUTO) 1 % (0-10); HEMATOCRIT 29 % (35-52); HEMOGLOBIN 9.6 G/DL (11.5-16.0); LYMPHOCYTES # (AUTO) 3.1 X 10^3 (1.0-4.0); LYMPHOCYTES % (AUTO) 26 % (12-44); MEAN CORPUSCULAR HEMOGLOBIN 30 PG (25-34); MEAN CORPUSCULAR HGB CONC 33 G/DL (32-36); MEAN CORPUSCULAR VOLUME 91 FL (80-99); MEAN PLATELET VOLUME 11.2 FL (7.4-10.4); MONOCYTES # (AUTO) 0.9 X 10^3 (0.0-1.0); MONOCYTES % (AUTO) 7 % (0-12); NEUTROPHILS # (AUTO) 7.8 X 10^3 (1.8-7.8); NEUTROPHILS % (AUTO) 66 % (42-75); PLATELET COUNT 144 10^3/uL (130-400); RED BLOOD COUNT 3.17 10^6/uL (4.35-5.85); RED CELL DISTRIBUTION WIDTH 14.5 % (10.0-14.5)
[2017-10-11 06:40] VITALS: BP 108/71
[2017-10-11] MEDS: DOCUSATE SODIUM 100 MG (COLACE) CAP PO SCH ×2 (09:30→21:05)
[2017-10-11] MEDS: FERROUS SULF 325 MG (IRON) TAB PO SCH (09:30)
--- NOTE | 2017-10-11 10:02 | Progress Note-Standard ---
Standard Progress Note Progress Notes/Assess & Plan Date Seen by Provider: Oct 11, 2017 Time Seen by Provider: 08:30 Progress/Assessment & Plan Patient doing well PP day 1 nvd. Reports good pain control, denies heavy lochia. . Vital Sign - Last 24 Hours 10/10/17 10/10/17 10/10/17 10/10/17 10:08 10:23 13:50 18:35 Temp 98.3 98.4 Pulse 87 86 101 100 Resp B/P (MAP) 127/67 (87) 130/69 (89) 137/77 (97) 131/66 (87) Pulse Ox 97 97 O2 Delivery Room Air Room Air Room Air Room Air 10/10/17 10/11/17 10/11/17 21:42 03:00 06:40 Temp 99.1 97.7 98.5 Pulse 100 95 86 Resp B/P (MAP) 131/77 (95) 115/65 (82) 108/71 (83) Pulse Ox 98 98 98 O2 Delivery Room Air Room Air Room Air Intake and Output 10/10/17 10/10/17 10/11/17 15:00 23:00 07:00 Intake Total 1400 ml Balance 1400 ml Laboratory Tests Test 10/11/17 05:15 Range/Units White Blood Count 12.0 H 4.3-11.0 10^3/uL Red Blood Count 3.17 L 4.35-5.85 10^6/uL Hemoglobin 9.6 #L 11.5-16.0 G/DL Hematocrit 29 L 35-52 % Mean Corpuscular Volume 91 80-99 FL Mean Corpuscular Hemoglobin 30 25-34 PG Mean Corpuscular Hemoglobin Concent 33 32-36 G/DL Red Cell Distribution Width 14.5 10.0-14.5 % Platelet Count 144 130-400 10^3/uL Mean Platelet Volume 11.2 H 7.4-10.4 FL Neutrophils (%) (Auto) 66 42-75 % Lymphocytes (%) (Auto) 26 12-44 % Monocytes (%) (Auto) 7 0-12 % Eosinophils (%) (Auto) 1 0-10 % Basophils (%) (Auto) 0 0-10 % Neutrophils # (Auto) 7.8 1.8-7.8 X 10^3 Lymphocytes # (Auto) 3.1 1.0-4.0 X 10^3 Monocytes # (Auto) 0.9 0.0-1.0 X 10^3 Eosinophils # (Auto) 0.1 0.0-0.3 10^3/uL Basophils # (Auto) 0.0 0.0-0.1 10^3/uL Uterine fundus firm and below umbilicus Diagnosis: PPD 1 VAVD Acute blood loss anemia P: DC today PP precautions reviewed ULISES ENGLISH DO Oct 11, 2017 10:02 am
[2017-10-11] MEDS: PRENATAL VITAMIN 1 EA TAB PO SCH (10:54)
--- NOTE | 2017-10-11 13:23 | Anesthesia-Regional Post-Op ---
Regional Patient Condition Mental Status: Alert, Oriented x3 Circulation: Same as Pre-Op Headache: Absent Sensation: Full Recovery Motor Block: Absent Post Op Complications Complications None Follow Up Care/Instructions Patient Instructions None needed. Anesthesia/Patient Condition Patient is doing well, no complaints, stable vital signs, no apparent adverse anesthesia problems. CHERISE MCLAUGHLIN DO Oct 11, 2017 13:23
[2017-10-11 15:30] VITALS: BP 126/78
[2017-10-11 21:00] VITALS: BP 126/79
[2017-10-12] MEDS: IBUPROFEN 600 MG (MOTRIN) TAB PO SCH ×2 (02:53→08:22)
[2017-10-12 03:06] VITALS: BP 119/69
[2017-10-12 08:19] VITALS: BP 123/75
[2017-10-12] MEDS: PRENATAL VITAMIN 1 EA TAB PO SCH (08:22)
[2017-10-12] MEDS: FERROUS SULF 325 MG (IRON) TAB PO SCH (08:22)
[2017-10-12] MEDS: WITCH HAZEL(TUCKS) 40 EA JAR TOP PRN (08:22)
[2017-10-12] MEDS: BENZOCAINE/MENTHOL (DERMOPLAST) 56 ML CAN TP PRN (08:22)
[2017-10-12] MEDS: DOCUSATE SODIUM 100 MG (COLACE) CAP PO SCH (08:22)
== END 2017-10-12 14:05 | disposition home or self-care (01) | DRG 775 ==
LOC: WSo 00:41 → LDRP 00:42 → WSo 01:14 → OBSVTOIN 02:56 → LDRP 10:30
PROVIDERS: ADMIT Obstetrics & Gynecology; ATTEND Obstetrics & Gynecology
PROC: 10D07Z6 Extraction of Products of Conception, Vacuum, Via Natural or Artificial Opening (ICD-10-PCS; principal; 2017-10-10)
PROC: 0W8NXZZ Division of Female Perineum, External Approach (ICD-10-PCS; 2017-10-10)
DX: O76 Abnormality in fetal heart rate and rhythm complicating labor and delivery (principal); O90.81 Anemia of the puerperium; D62 Acute posthemorrhagic anemia; Z3A.38 38 weeks gestation of pregnancy; Z37.0 Single live birth
CPT/HCPCS: 36415; 85007; 85025; 85027; 86850; 86900; 86901; 99212

== ENCOUNTER → 2019-10-06 | Outpatient (CLI) | payer BC ==
[~2019-10-06] MED LIST changes: +ACHD5005 PO; +Benzocaine/Menthol TP; +DOCU100C37 PO; +FERR325T18 PO
--- NOTE | 2019-10-06 16:33 | Diagnostic Imaging Report ---
INDICATION: survey. TECHNIQUE: Multiple real-time grayscale images were obtained over the gravid uterus. COMPARISON: None FINDINGS: There is a single live fetus in a cephalic presentation. heart rate was recorded at 160 bpm. Placenta is posterior. Amniotic fluid volume appears normal. Cervical length is approximately 3.7 cm. kidneys, bladder and stomach are unremarkable. Brain is unremarkable although cerebellum and cisterna magna were limited due to low head position. There is a four-chamber heart. There is a three-vessel cord with normal insertion. The spine is unremarkable. Biometrical measurements are as follows: Biparietal 4.80 cm, age 20 weeks 4 days. Head circumference 17.99 cm, age 20 weeks 3 days. Abdominal circumference 14.59 cm, age 20 weeks 0 days. Femur length 3.37 cm, age 20 weeks 4 days. Sonographic estimate age: 20 weeks 3 days. Sonographic estimated date of delivery: 02/20/20. Estimated Weight: 341 gm (+/- 50 gm). LMP percentile: 51%. heart rate: 160 beats per minute. number: 1 of 1. IMPRESSION: Single live IUP 20 weeks 3 days gestational age. Estimated date of confinement sonographically is 02/20/2020. Dictated by: Dictated on workstation # [id number]
== END ==
LOC: RAD 15:02
PROVIDERS: ATTEND Nurse Practitioner Women's Health
DX: Z36.89 Encounter for other specified antenatal screening (principal); Z3A.20 20 weeks gestation of pregnancy
CPT/HCPCS: 76805

== ENCOUNTER 2020-02-11 12:40 | Inpatient (IN) | payer BC ==
[~2020-02-11] VITALS: Ht 165 cm; Wt 89.5 kg
[2020-02-11] VITALS (30 sets, daily range): BP systolic 101–153; BP diastolic 50–83
--- NOTE | 2020-02-11 12:32 | NUR ---
CHLOE CHO presented to unit via AMBULATORY from ED, accompanied by S/O, with c/o LABOR. CHLOE CHO weighed, gowned, voided, and to bed. EFHM and TOCO applied, VS taken. CHLOE CHO oriented to bed controls, call light, TV, heat, and A/C controls.
[2020-02-11 13:11] LABS: BASOPHILS % (AUTO) 0 % (0-10); EOSINOPHILS # (AUTO) 0.2 10^3/uL (0.0-0.3); EOSINOPHILS % (AUTO) 2 % (0-10); HEMATOCRIT 37 % (35-52); HEMOGLOBIN 12.6 G/DL (11.5-16.0); LYMPHOCYTES # (AUTO) 2.2 X 10^3 (1.0-4.0); LYMPHOCYTES % (AUTO) 19 % (12-44); MEAN CORPUSCULAR HEMOGLOBIN 30 PG (25-34); MEAN CORPUSCULAR HGB CONC 34 G/DL (32-36); MEAN CORPUSCULAR VOLUME 89 FL (80-99); MEAN PLATELET VOLUME 11.4 FL (7.4-10.4); MONOCYTES # (AUTO) 0.6 X 10^3 (0.0-1.0); MONOCYTES % (AUTO) 5 % (0-12); NEUTROPHILS # (AUTO) 8.3 X 10^3 (1.8-7.8); NEUTROPHILS % (AUTO) 74 % (42-75); PLATELET COUNT 212 10^3/uL (130-400); RED CELL DISTRIBUTION WIDTH 14.4 % (10.0-14.5); WHITE BLOOD COUNT 11.3 10^3/uL (4.3-11.0)
[2020-02-11] MEDS ORDERED: D5 LR IV SOLUTION 1,000 ML IV SCH (13:14)
--- NOTE | 2020-02-11 13:14 | History & Physical-OB ---
OB - Chief Complaint & HPI Date/Time Date of Admission: Date of Admission: February 11, 2020 at 12:40 pm Date seen by a Provider: February 11, 2020 Time Seen by a Provider: 13:10 Chief Complaint/History OB-Reason for Admission/Chief: Onset of Labor Hx : 3 Hx Para: 1 Expected Date of Delivery: Feb 22, 2020 Gestational Age in Weeks: 38 Gestational Age in Days: 3 Other reason for admission: Advanced cervical dilatation, 38 weeks Admission Nurse Assessment Rev: Yes History of Labs O pos Antibody neg RI RPR NR HBsAg NR HIV NR GC neg GBS neg Allergies and Home Medications Allergies Coded Allergies: No Known Drug Allergies (Unverified , 09/19/17) Home Medications Docusate Sodium 100 Mg Capsule, 100 MG PO BID PRN for CONSTIPATION-1ST LINE Prescribed by: ULISES ENGLISH on 10/10/17926 Ferrous Sulfate 325 Mg Tablet, 325 MG PO DAILY Prescribed by: ULISES ENGLISH on 10/10/17926 Hydrocodone Bit/Acetaminophen 1 Tab Tab, 1-2 TAB PO Q4H PRN for PAIN-MODERATE Prescribed by: ULISES ENGLISH on 10/10/17926 Ibuprofen 600 Mg Tablet, 600 MG PO Q6H Prescribed by: ULISES ENGLISH on 10/10/17926 Pnv95/Ferrous Fumarate/FA 1 Each Tablet, 1 EACH PO DAILY, (Reported) [Benzocaine/Menthol] 56 ML AEROSOL, 56 ML TP UD PRN for PAIN- SEE INSTRUCTIONS EXTERNAL USE ONLY Prescribed by: ULISES ENGLISH on 10/10/17926 Patient Home Medication List Home Medication List Reviewed: Yes OB - History Hx of Present Care: Yes Ultrasounds: Normal mid trimester US Obstetrical Complications: None Medical Complications: None Delivery History Hx Blood Disorders: No Patient Past Medical History n/a Social History/Family History HIV/AIDS: No Sexually Transmitted Disease: No Immunizations Date of Influenza Vaccine: Jul 10, 2017 OB - Admission Exam Physical Exam HEENT: NCAT Heart: Rhythm Normal Lungs: Clear Abdomen: Gravid Extremities: Normal Reflexes: Normal Cervical Dilatation: 5cm Effacement: 75% Station: -1 Membranes: Intact Heart Rate: 130's Accelerations: Accelerations Present Decelerations: No Decelerations Short Term Variability: Present Fpc Variability: Average (6-25) Contractions on Admission: < 5 Minutes Apart Intensity: Firm Labs Laboratory Tests Test 5/21/20 12:55 Range/Units OB - Assessment/Plan/Diagnosis Assessment Assessment: active labor Admission Dx 29 yo @ 38 weeks Active labor GBS neg Admission Status: Inpatient Order (span 2 midnights) Reason for Inpatient Admission: Active labor at term Plan Plan: Expectant Management (Epidural at patient request) ULISES ENGLISH DO February 11, 2020 1:14 pm
[2020-02-11] MEDS ORDERED: OXYTOCIN PRE-MIX DRIP 500 ML IV SCH (13:15)
[2020-02-11] MEDS ORDERED: fentaNYL 2 mcg/ml BUPIVA 0.125 100 ML ONE (13:23)
[2020-02-11] MEDS ORDERED: fentaNYL INJECTION 100 MCG/2 ML AMP ONE (13:29)
[2020-02-11] MEDS ORDERED: BUPIVACAINE 0.25% 30 ML (SENSORCAINE) VIAL ONE (13:29)
--- NOTE | 2020-02-11 13:29 | NUR ---
Beny KNOWLES CRNA NOTIFIED OF PT'S DESIRE FOR EPIDURAL PLACEMENT.
[2020-02-11] MEDS ORDERED: CATHETER FLUSH 10 ML SYR IV SCH ×2 (14:00→22:00)
--- OUTSIDE RECORDS SUMMARY | 2020-02-11 14:01 | XMS REPORT | Clinical Summary ---
Author Author [facility] Organization [facility] Address Unknown Phone Unavailable Care Team Providers Care Grey Good[employer] Marker Name Role Phone Self, Referral PCP Unavailable Source Comments Some departments are not documenting in the electronic medical record. If you d o not see the information that you expected, contact Release of Information in [facility] [employer] Information Management department at [phone] for further assistan ce in locating additional records.[facility] Allergies Not on File Medications Not on file Active Problems Not on file Social History Date Tobacco Use Types Packs/Day Years Used Never Assessed Sex Assigned at Date Recorded Not on file Industry Job Start Date Occupation Not on file Not on file Not on file Travel End Travel History Travel Start No recent travel history available. Last Filed Vital Signs Not on file Plan of Treatment Health Maintenance Due Date Last Done Comments HIV SCREENING 2005 DTAP/TDAP VACCINES (1 - 2008 Tdap) HEPATITIS C SCREENING 2008 PHYSICAL (COMPREHENSIVE) 2008 EXAM CERVICAL CANCER SCREENING 2011 INFLUENZA VACCINE 06/23/2020 Results Not on filefrom Last 3 Months Insurance Type Payer Benefit Subscriber ID Effective Phone Address Plan / Dates Group PPO BCBS [facility] xxxxxxxxxxxx 2016- PREF CARE Present BLUE Advance Directives Patient Qual Field Manager Explanation Type Date Recorded Advance Directive/DPOA
--- OUTSIDE RECORDS SUMMARY | 2020-02-11 14:01 | XMS REPORT ---
Author Author Sandie ANGEL Organization [facility] Address [address] [place] [address] Care Team Providers Care Reproductive Endocrinologist Name Role Phone SEJAL ANGEL Unavailable PROBLEMS Unknown Problems ALLERGIES No Information ENCOUNTERS Encounter Location Date Diagnosis [facility] [address] [facility] [id number] [address] [place] [phone] Jun, Encounter for immunization Z 23 [facility] [address] [id number] [place] [id number] Jun, Encounter for immunization Z 23 [facility] [address] [id number] [place] [address] [id number] Oct, Otitis media H66.90 and Coug h R05 [facility] [address] [facility] [id number] [address] [place] [phone] Jun, Encounter for immunization Z 23 [facility] [address] [facility] [id number] [address] [place] [phone] Jun, Encounter for immunization Z 23 IMMUNIZATIONS Vaccine Route Administration Date Status FLULAVAL QUAD 0.5ML (6 MO & UP) 2017 IM Intramuscular Jul 14 18 Administered SOCIAL HISTORY Never Assessed REASON FOR VISIT Flu shot PLAN OF CARE VITAL SIGNS MEDICATIONS Unknown Medications RESULTS No Results PROCEDURES Procedure Date Ordered Result Body Site FLULAVAL QUAD 0.5ML (6 MO AND UP) 2018 Jul 14, 2018 SINGLE IMMUNIZATION ADMIN Jul 14, 2018 INSTRUCTIONS MEDICATIONS ADMINISTERED No Known Medications
--- OUTSIDE RECORDS SUMMARY | 2020-02-11 14:01 | XMS REPORT ---
Author Author [employer] [facility] PPT [facility] [email or web address] [facility] Address [address] [address] Care Team Providers Care Optics Engineer Name Role Phone ISMAEL ESCOBAR Unavailable SEJAL ANGEL Unavailable RACHELE PANCHAL MD Unavailable Unavailable ULISES ELIAS DO S Unavailable Unavailable ULISES ELIAS DO S Unavailable Unavailable RACHELE PANCHAL MD Unavailable Unavailable SRAVAN MENDEZ APRN Unavailable Unavailable Unavailable Unavailable Unavailable Unavailable Unavailable Unavailable Unavailable Unavailable Allergies Normalized Allergy Reported Date of Reaction(s) Care Provider Facility Allergy Type classification allergen Allergy Onset DA (12 Unclassified No Known Drug 12-20-2016 - no information ULISES FENECH Not Available sources.) Allergies , DO (81573) Medications The data below is from unstructured sources Unknown Medications No Known Medications Problems Active Problems Problem Normalized Date Last Normalized Normalized Provider Fa cility Classification Problem(s) Recorded Problem Problem Sta tus Duration Residual 20 weeks Episodic Active SRAVAN MENDEZ [facility] Via codes; gestation of , HOUSE SITTER [facility] unclassified [facility] - (1 source.) [place] ([address]) Residual 35 weeks Episodic Active ULISES ELIAS [facility] Via codes; gestation of , DO [facility] unclassified [facility] - (1 source.) [place] (53319) Residual 38 weeks Episodic Active ULISES FENECH [facility] Via codes; gestation of , DO [facility] unclassified [facility] - (1 source.) [place] ([address]) Other Abnormal Episodic Active RACHELE PANCHAL [facility] Via screening for finding of [facility] suspected blood Hospital - conditions chemistry, [place] (not mental unspecified (12347) disorders or Translations: infectious [ ENCOUNTER disease) (5 FOR OTHER sources.) SPECIFIED ] Other Abnormality in Episodic Active ULISES ELIAS [facility] Via complications heart , [facility] of ; rate and Hospital - puerperium rhythm [place] affecting complicating (15446) management of labor and mother (4 delivery sources.) Acute Acute Episodic Active ULISES ELIAS [facility] Via posthemorrhagi posthemorrhagi , [facility] c anemia (4 c anemia Hospital - sources.) [place] ([address]99) Other Anemia of the Chronic Active ULISES ELIAS [facility] Via complications puerperium , [facility] of ; Hospital - puerperium [place] affecting (25718) management of mother (4 sources.) Other lower Cough Episodic Active SEJAL ANGEL [facility] respiratory Translations: [address] [facility] disease (1 [ - Cough R05] of [facility] source.) [place] ([address]) Spontaneous Delayed or Episodic Active ULISES ELIAS [facility] Via (3 excessive , DO [facility] sources.) hemorrhage Hospital - following [place] incomplete (32484) spontaneous Translations: [ INCOMPLETE SPONTANEOUS WITHOUT ] Immunizations Encounter for Episodic Active SEJAL ANGEL [facility] and screening immunization [address] [facility] for infectious Translations: of [facility] disease (4 [ - Encounter [place] (62994) sources.) for immunization Z23] Fever of Fever, Episodic Active ULISES ELIAS [facility] Via unknown origin unspecified , [facility] (6 sources.) Hospital - [place] ([address]83) Noninfectious Noninfective Episodic Active ULISES ELIAS [facility] Via gastroenteriti gastroenteriti , [facility] s (3 sources.) s and colitis, Hospital - unspecified [place] (41851) Otitis media Otitis media, Episodic Active SEJAL ANGEL [facility] and related unspecified, [address] [facility] conditions (1 unspecified of [facility] source.) ear [place] ([address]) Translations: [ - Otitis media H66.90] Other Single live Episodic Active ULISES ELIAS [facility] V ia and , [facility] delivery Translations: Hospital - including [ ENCOUNTER [place] normal (10 FOR SUPRVSN OF (11544) sources.) NORMAL PREGNANC] Cardiac Tachycardia, Episodic Active ULISES ELIAS [facility] Via dysrhythmias unspecified , [facility] (6 sources.) Hospital [facility] ([address]006) Hemorrhage Threatened Episodic Active RACHELE PANCHAL [facility] V ia during [facility] ; Hospital - abruptio [place] placenta; (71296) placenta previa (4 sources.) Past or Other Problems Problem Normalized Date Last Normalized Normalized Provider Fa cility Classification Problem(s) Recorded Problem Problem Sta tus Duration NEGATED 38 weeks no information no information ULISES FENECH Not Available no gestation of , DO (25468) information (5 sources.) Translations: [ 35 WEEKS GESTATION OF ] Procedures Procedure Normalized Procedure Procedure Result Performer Facility Date 10-10-2017 DIVISION OF FEMALE no information no name [facility] Via [facility] PERINEUM, EXTERNAL [facility] (63846) DIVISION OF FEMALE no information no name Not Availab le (70241) PERINEUM, EXTERNAL AP 10-10-2017 EXTRACTION OF PRODUCTS no information no name [facility] EXTRACTION OF PRODUCTS no information no name Not Angela ilable ([address]10) OF [place] Immunizations Normalized Immunization Date Notes Care Provider Facili ty Immunization influenza, 07-14-2018 no information SEJAL ANGEL [id number] [facility] injectable, [facility], [place] ([address]) preservative free influenza, seasonal, 07-06-2019 no information no name Co [facility] injectable Center [facility] ([address]244) influenza, seasonal, 07-14-2018 no information SEJAL ANGEL 6676 2 [facility] injectable [facility] (75467) SINGLE IMMUNIZATION 07-14-2018 - no information SEJAL Hartmann [facility] Translations: 07-14-2018 [facility] t [ FLULAVAL [facility] (85866) 0.5ML (6 [place] ] Results The data below is from unstructured sources No Results Vital Signs The data below is from unstructured sources Vital Response Date/Time Temperature (Fahrenheit) 97.0 degree s F (97.6 - 99.5) 12/20/2016 9:15am Temperature (Calculated Celsius) 36. 41032 degrees C (36.4 - 37.5) 12/20/2016 9:10am Temperature Source Temporal 12/20/2016 9:15am Pulse Rate (adult) 54 bpm (60 - 90) 12/20/2016 9:15am Respiratory Rate 16 bpm (12 - 24) 12/20/2016 9:15am O2 Sat by Pulse Oximetry 99 % (88 - 100) 12/20/2016 9:15am Blood Pressure 113/73 mm Hg 12/20/2016 9:15am Blood Pressure Mean 71 mm Hg 12/20/2016 6:20am Pain Numeric Pain Scale 0-No Pain 12/20/2016 9:15am Pain Intensity 0 2016 9:10am Height (Feet) 5 feet 6:20am Height (Inches) 4.00 inches 12/20/2016 6:20am Height (Calculated Centimeters) 162. 394184 cm 12/20/2016 6:20am Weight (Pounds) 170 pounds 12/20/2016 6:20am Weight (Ounces) 0.0 oz 0 12/20/2016 6:20am Weight (Calculated Grams) 76090.70 gm 12/20/2016 6:20am Weight (Calculated Kilograms) 77.110 704 kilograms 12/20/2016 6:20am Calculated BMI 29.2 11/23 6:20am Vital Response Date/Time Temperature (Fahrenheit) 98.1 degree s F (97.6 - 99.5) 09/19/2017 9:00am Temperature (Calculated Celsius) 36. 09973 degrees C (36.4 - 37.5) 09/19/2017 9:00am Temperature Source Tympanic 09/19/2017 9:00am Pulse Rate (adult) 103 bpm (60 - 90) 09/19/2017 9:00am Respiratory Rate 18 bpm (12 - 24) 09/19/2017 9:00am Blood Pressure 120/77 mm Hg 09/19/2017 9:00am Blood Pressure Mean 91 mm Hg (65 - 110) 09/19/2017 9:00am Pain Numeric Pain Scale 0-No Pain 09/19/2017 9:00am Height (Feet) 5 feet 5:21am Height (Inches) 4.00 inches 09/19/2017 5:21am Height (Calculated Centimeters) 162. 033233 cm 09/19/2017 5:21am Weight (Pounds) 194 pounds 09/19/2017 5:21am Weight (Ounces) 0.0 oz 1 11/20/2016 5:21am Weight (Calculated Grams) 37918.92 gm 09/19/2017 5:21am Weight (Calculated Kilograms) 87.996 921 kilograms 09/19/2017 5:21am Calculated BMI 33.3 08/24 5:21am Weight Measurement Method Standing Scale 09/19/2017 5:21am Vital Response Date/Time Temperature (Fahrenheit) 97.9 degree s F (97.6 - 99.5) 10/12/2017 8:19am Temperature (Calculated Celsius) 36. 09931 degrees C (36.4 - 37.5) 10/12/2017 8:19am Temperature Source Temporal 10/12/2017 8:19am Pulse Rate (adult) 79 bpm (60 - 90) 10/12/2017 8:19am Respiratory Rate 18 bpm (12 - 24) 10/12/2017 8:19am O2 Sat by Pulse Oximetry 97 % (88 - 100) 10/12/2017 8:19am Blood Pressure 123/75 mm Hg 10/12/2017 8:19am Blood Pressure Mean 91 mm Hg (65 - 110) 10/12/2017 8:19am Pain Numeric Pain Scale 2 12:00pm Height (Feet) 5 feet 12:47am Height (Inches) 4.00 inches 10/10/2017 12:47am Height (Calculated Centimeters) 162. 202931 cm 10/10/2017 12:47am Weight (Pounds) 202 pounds 10/10/2017 12:47am Weight (Ounces) 0.0 oz 0 10/10/2017 12:47am Weight (Calculated Grams) 39717.66 gm 10/10/2017 12:47am Weight (Calculated Kilograms) 91.625 660 kilograms 10/10/2017 12:47am Calculated BMI 34.7 09/23 12:47am Weight Measurement Method Standing Scale 10/10/2017 12:47am Interventions No Information Plan of Treatment The data below is from unstructured sources Discharge Date 12/20/16 9:35am Instructions/Education Provided ANES THESIA INSTRUCTIONS POSTOP Dilation and Curettage (DC) Prescriptions See Medication Section Discharge Date 09/19/17 10:50am Instructions/Education Provided OB O UTPATIENT DISCHARGE Prescriptions See Medication Section Discharge Date 10/12/17 2:05pm Disposition 01 HOME, SELF-CARE Instructions/Education Provided POST DISCHARGE VAGINAL DELIVERY DISCHARGE Forms Provided PDI Prescriptions See Medication Section Referrals (Unspecified) Entered Date: 10/10/2017 5:12pm Note: 6 week post appointment with Dr.F leyva: November 21 @ 11:00 Additional Instructions/Education fo llow up as scheduled. call with questions or concerns. Goals No Information Social History No Information Functional Status The data below is from unstructured sourcesNo functional status information available.No functional status information available.No functional status information available.No functional status information available.No functional status information available. Mental Status No Information Encounters Encounter Normalized Encounter Encounter Diagnosis Care Provi carson Organization Date Type 10-28-2015 (ACUTE) Acute Visit Otitis media, ANITA Kristel (no [facility] unspecified, phone) [facility] (no phon e) unspecified ear 07-03-2016 (IMM/INJ) Encounter for ANITA ArnoldE (no [facility] Immunization/injection immunization phone) [facility] (no phone) 07-14-2018 (outreach) Outreach Encounter for SEJAL ANGEL (no ph one) [facility] Visit immunization (no phone) 07-11-2015 (OUTREACH) Outreach Encounter for ANITA Humphries (no [facility] Visit immunization phone) (no phone) 07-08-2015 (OUTREACH) Outreach Encounter for ANITA Humphries (no [facility] Visit immunization phone) (no phone) 09-19-2017 Emergency department no information no name no organization name patient visit 10-09-2017 Evaluation and no information no name no organ ization name - management of 10-12-2017 inpatient 10-10-2017 Patient encounter no information no name no or ganization name - 10-12-2017 10-10-2017 Patient encounter no information no name no or ganization name Patient encounter no information no name no organizat ion name 10-06-2019 Patient encounter no information no name no or ganization name procedure 09-19-2017 Patient encounter no information no name no or ganization name - procedure 09-19-2017 09-10-2017 Patient encounter no information no name no or ganization name procedure 12-25-2016 Patient encounter no information no name no or ganization name procedure 12-25-2016 Patient encounter no information no name no or ganization name procedure 12-20-2016 Patient encounter no information no name no or ganization name - procedure 12-20-2016 12-20-2016 Patient encounter no information no name no or ganization name - procedure 12-20-2016 11-21-2016 Patient encounter no information no name no or ganization name procedure Medical Equipment No Information Payers No Information Advance Directives Directive Response Recor ded Date/Time Advance Directives No 6:20am Organ Donor No 12/20/16 6:20am Resuscitation Status Full Code 12/20/16 6:20am Directive Response Recor ded Date/Time Advance Directives No 5:25am Organ Donor No 09/19/17 5:25am Resuscitation Status Full Code 09/19/17 5:25am Directive Response Recor ded Date/Time Advance Directives No 12:47am Organ Donor No 10/10/17 12:47am Resuscitation Status Full Code 10/10/17 12:47am Discharge Instructions Patient Instructions Physician Instructions New, Converted or Re-Newed RX: RX on Chart Additional Follow Up: Yes Orders/Referrals Follow up on Saturday for lab draw, follow up with either Dr. Panchal or Dr. Elias in the next 2-3 weeks. Activity: Activity as Tolerated Driving Instructions: You May Drive (do not drive today 12/20/2016) NO SMOKING: NO SMOKING Nothing Inside Vagina: No Douching, No [place], No Tampons Discharge Diet: No Restrictions Symptoms to Report to : Bleeding Excessive, Pain Increased, Fever Over 101 Degrees F, Vaginal Bleeding Increase, Questions/Concerns For Any Problems or Questions: Contact Your Physician Bathing Instructions: Shower (x 1 week) No hospital discharge instruction information available.No hospital discharge i nstruction information available. Additional Source Comments This clinical document has been generated using [employer] software that has been certified by the Office of the National Coordinator for Health Information Technology (ONC 15.99.04.3023.Diam.31.00.0.001572) and the National Committee for [employer] Domestic (NCQA, as an eMeasure certified technology). FOR RECORDS PERTAINING TO PATIENTS WHO ARE OR HAVE BEEN ENROLLED IN A CHEMICAL D EPENDENCY/SUBSTANCE ABUSE PROGRAM, SOME INFORMATION MAY BE OMITTED. This clinica l summary was aggregated from multiple sources. Caution should be exercised in using it in the provision of clinical care. This summary normalizes information from multiple sources, and as a consequence, information in this document may ma terially change the coding, format and clinical context of patient data. In leidy tion, data may be omitted in some cases. CLINICAL DECISIONS SHOULD BE BASED ON T HE PRIMARY CLINICAL RECORDS. [employer] provides no warranty or guara ntee of the accuracy or completeness of information in this document.The followi ng information is based on time limited clinical information UNRECOGNIZED CONTENT PROVIDED BELOW FOR UNRECOGNIZED SECTION REASON FOR VISIT Flu shot
--- OUTSIDE RECORDS SUMMARY | 2020-02-11 14:01 | XMS REPORT | Continuity of Care Document ---
Author Organization Unknown Address Unknown Phone Unavailable Allergies Active Description Code Type Severity Reaction Onset Reported/Identified Relationship to Patient Clinical Status Yes No Known Drug Allergies [id number] Drug Allergy Unknown N/A 09/19/2017 Medications There is no data. Problems Date Dx Coded Attending Type Code Diagnosis Diagnosed By 11/22/2016 RACHELE CHAVEZ MD Ot O20. 0 THREATENED 12/06/2016 RACHELE CHAVEZ MD Ot O20. 0 THREATENED 12/20/2016 FENECH DO, ULISES S Ot O03.1 DELAYED OR EXCESSIVE HEMOR FOLLOWING INC 12/20/2016 FENECH DO, ULISES S Ot O03.4 INCOMPLETE SPONTANEOUS WITHOUT 12/26/2016 KATHY CLINTON, RACHELE N Ot R79. 9 ABNORMAL FINDING OF BLOOD CHEMISTRY, UNS 01/07/2017 RACHELE CHAVEZ MD Ot R79. 9 ABNORMAL FINDING OF BLOOD CHEMISTRY, UNS 09/19/2017 FENECH DO, ULISES S Ot R00.0 TACHYCARDIA, UNSPECIFIED 09/19/2017 FENECH DO, ULISES S Ot R50.9 FEVER, UNSPECIFIED 09/19/2017 FENECH DO, ULISES S Ot Z34.83 ENCOUNTER FOR SUPRVSN OF NORMAL PREGNANC 09/19/2017 FENECH DO, ULISES S Ot R00.0 TACHYCARDIA, UNSPECIFIED 09/19/2017 FENECH DO, ULISES S Ot R50.9 FEVER, UNSPECIFIED 09/19/2017 FENECH DO, ULISES S Ot Z34.83 ENCOUNTER FOR SUPRVSN OF NORMAL PREGNANC 09/19/2017 RACHELE CHAVEZ MD Ot O20. 0 THREATENED 09/19/2017 RACHELE CHAVEZ MD Ot R79. 9 ABNORMAL FINDING OF BLOOD CHEMISTRY, UNS 09/19/2017 FENECH DO, ULISES S Ot R00.0 TACHYCARDIA, UNSPECIFIED 09/19/2017 FENECH DO, ULISES S Ot R50.9 FEVER, UNSPECIFIED 09/19/2017 FENECH DO, ULISES S Ot Z34.83 ENCOUNTER FOR SUPRVSN OF NORMAL PREGNANC 09/19/2017 FENECH DO, ULISES S Ot K52.9 NONINFECTIVE GASTROENTERITIS AND COLITIS 09/19/2017 FENECH DO, ULISES S Ot Z3A.35 35 WEEKS GESTATION OF 09/21/2017 FENECH DO, ULISES S Ot R00.0 TACHYCARDIA, UNSPECIFIED 09/21/2017 FENECH DO, ULISES S Ot R50.9 FEVER, UNSPECIFIED 09/21/2017 FENECH DO, ULISES S Ot Z34.83 ENCOUNTER FOR SUPRVSN OF NORMAL PREGNANC 09/25/2017 FENECH DO, ULISES S Ot K52.9 NONINFECTIVE GASTROENTERITIS AND COLITIS 09/25/2017 FENECH DO, ULISES S Ot Z3A.35 35 WEEKS GESTATION OF 10/03/2017 FENECH DO, ULISES S Ot R00.0 TACHYCARDIA, UNSPECIFIED 10/03/2017 FENECH DO, ULISES S Ot R50.9 FEVER, UNSPECIFIED 10/03/2017 FENECH DO, ULISES S Ot Z34.83 ENCOUNTER FOR SUPRVSN OF NORMAL PREGNANC 10/12/2017 FENECH DO, ULISES S Ot D6 2 ACUTE POSTHEMORRHAGIC ANEMIA 10/12/2017 FENECH DO, ULISES S Ot O7 6 ABNLT IN HEART RATE AND RHYTHM COM 10/12/2017 FENECH DO, ULISES S Ot O90.81 ANEMIA OF THE PUERPERIUM 10/12/2017 FENECH DO, ULISES S Ot Z37.0 SINGLE LIVE 10/12/2017 FENECH DO, ULISES S Ot Z3A.38 38 WEEKS GESTATION OF 10/05/2019 KATHY CLINTON, RACHELE Duenas Ot O20. 0 THREATENED 10/05/2019 KATHY CLINTON, RACHELE N Ot R79. 9 ABNORMAL FINDING OF BLOOD CHEMISTRY, UNS 10/05/2019 FENECH DO, ULISES S Ot R00.0 TACHYCARDIA, UNSPECIFIED 10/05/2019 FENECH DO, ULISES S Ot R50.9 FEVER, UNSPECIFIED 10/05/2019 FENECH DO, ULISES S Ot Z34.83 ENCOUNTER FOR SUPRVSN OF NORMAL PREGNANC 10/23/2019 SRAVAN MENDEZ HORSE TRADER Ot Z36.89 ENCOUNTER FOR OTHER SPECIFIED 10/23/2019 SRAVAN MENDEZ APRN Ot Z3A.20 20 WEEKS GESTATION OF Procedures Code Description Performed By Per formed On [id number] DI VISION OF FEMALE PERINEUM, EXTERNAL AP 10/10/2017 [id number] EX TRACTION OF PRODUCTS OF CONCEPTION, [place] 10/10/2017 Results Test Result Range Complete blood count (CBC) with automate d white blood cell (WBC) differential - 12/20/16 06:29 Blood leukocytes automated count (number/volume) 8.9 10*3/uL 4.3-11.0 Blood erythrocytes automated count (number/volume) 4.49 10*6/uL 4.35-5.85 Venous blood hemoglobin measurement (mass/volume) 13.2 g/dL 11.5-16.0 Blood hematocrit (volume fraction) 41 % 35-52 Automated erythrocyte mean corpuscular volume 90 [ foz_us] 80-99 Automated erythrocyte mean corpuscular h emoglobin (mass per erythrocyte) 29 pg 25-34 Automated erythrocyte mean corpuscular h emoglobin concentration measurement (mass/volume) 33 g/dL 32-36 Automated erythrocyte distribution width ratio 13. 7 % 10.0- 14.5 Automated blood platelet count (count/volume) 269 10*3/uL 130-400 Automated blood platelet mean volume measurement 9.9 [foz_us] 7.4-10.4 Automated blood neutrophils/100 leukocytes 51 % 42-75 Automated blood lymphocytes/100 leukocytes 38 % 12-44 Blood monocytes/100 leukocytes 9 % 0-12 Automated blood eosinophils/100 leukocytes 2 % 0-10 Automated blood basophils/100 leukocytes 1 % 0-10 Blood neutrophils automated count (number/volume) 4.5 10*3 1.8-7.8 Blood lymphocytes automated count (number/volume) 3.3 10*3 1.0-4.0 Blood monocytes automated count (number/volume) 0. 8 10*3 0.0-1.0 Automated eosinophil count 0.2 10*3/uL 0 .0-0.3 Automated blood basophil count (count/volume) 0.1 10*3/uL 0.0-0.1 Blood type T Indirect antibody screen pa eitan - 12/20/16 06:29 ABO+Rh group OP NRG Transfusion band number [id number] NRG Blood group antibody screen NEGATIVE NR G Methicillin resistant Staphylococcus aur eus (MRSA) screening culture - 12/20/16 07:00 Methicillin resistant Staphylococcus aureus (MRSA) scr eening culture NEG NRG Influenza virus A and B antigen detectio n - 09/10/17 16:50 CALL POSITIVES (F1 HELP) CALLED TO [place] AT DR. ENGLISH'S AT 1713 NRG FLU RESULT POSITIVE FOR INFLUENZA A ANT IGEN, NEG FOR B ANTIGEN, BY IA NRG Complete blood count (CBC) with automate d white blood cell (WBC) differential - 09/19/17 05:45 Blood leukocytes automated count (number/volume) 13.3 10*3/uL 4.3-11.0 Blood erythrocytes automated count (number/volume) 4.24 10*6/uL 4.35-5.85 Venous blood hemoglobin measurement (mass/volume) 12.7 g/dL 11.5-16.0 Blood hematocrit (volume fraction) 37 % 35-52 Automated erythrocyte mean corpuscular volume 88 [ foz_us] 80-99 Automated erythrocyte mean corpuscular h emoglobin (mass per erythrocyte) 30 pg 25-34 Automated erythrocyte mean corpuscular h emoglobin concentration measurement (mass/volume) 34 g/dL 32-36 Automated erythrocyte distribution width ratio 13. 4 % 10.0- 14.5 Automated blood platelet count (count/volume) 214 10*3/uL 130-400 Automated blood platelet mean volume measurement 11.0 [foz_us] 7.4-10.4 Automated blood neutrophils/100 leukocytes 90 % 42-75 Automated blood lymphocytes/100 leukocytes 6 % 12-44 Blood monocytes/100 leukocytes 3 % 0-12 Automated blood eosinophils/100 leukocytes 1 % 0-10 Automated blood basophils/100 leukocytes 0 % 0-10 Blood neutrophils automated count (number/volume) 12.0 10*3 1.8-7.8 Blood lymphocytes automated count (number/volume) 0.8 10*3 1.0-4.0 Blood monocytes automated count (number/volume) 0. 4 10*3 0.0-1.0 Automated eosinophil count 0.1 10*3/uL 0 .0-0.3 Automated blood basophil count (count/volume) 0.0 10*3/uL 0.0-0.1 Blood manual differential performed dete ction - 09/19/17 05:45 Blood monocytes/100 leukocytes 2 % NRG Manual blood segmented neutrophils/100 leukocytes 86 % NRG Blood band neutrophils/100 leukocytes 1 % NRG Manual blood lymphocytes/100 leukocytes 6 % NRG Manual eosinophils/100 leukocytes in nose 1 % NRG Manual blood basophils/100 leukocytes 0 % NRG Blood lymphocytes variant/100 leukocytes 4 % NR Blood erythrocyte morphology finding identification NORMAL NR Comprehensive metabolic panel - 09/19/17 05:45 Serum or plasma sodium measurement (moles/volume) 139 mmol/L 135-145 Serum or plasma potassium measurement (moles/volume) 3.7 mmol/L 3.6-5.0 Serum or plasma chloride measurement (moles/volume) 107 mmol/L 98-107 Carbon dioxide 19 mmol/L 21-32 Serum or plasma anion gap determination (moles/volume) 13 mmol/L 5-14 Serum or plasma urea nitrogen measurement (mass/volume ) 9 mg/dL 7-18 Serum or plasma creatinine measurement (mass/volume) 0.59 mg/dL 0.60-1.30 Serum or plasma urea nitrogen/creatinine mass ratio 15 NRG Serum or plasma creatinine measurement w ith calculation of estimated glomerular filtration rate > NRG Serum or plasma glucose measurement (mass/volume) 85 mg/dL 70-105 Serum or plasma calcium measurement (mass/volume) 8.7 mg/dL 8.5-10.1 Serum or plasma total bilirubin measurement (mass/volu me) 0.7 mg/dL 0.1-1.0 Serum or plasma alkaline phosphatase nettie surement (enzymatic activity/volume) 163 U/L 40-136 Serum or plasma aspartate aminotransfera se measurement (enzymatic activity/volume) 21 U/L 5-34 Serum or plasma alanine aminotransferase measurement (enzymatic activity/volume) 27 U/L 0-55 Serum or plasma protein measurement (mass/volume) 6.3 g/dL 6.4-8.2 Serum or plasma albumin measurement (mass/volume) 3.3 g/dL 3.2-4.5 [id number] - 09/19/17 05:45 [id number] SPECIMEN AVAILABLE NRG Streptococcus agalactiae detection by or ganism specific culture - 09/19/17 09:00 QUANTITY OF GROWTH Isolated NRG Streptococcus agalactiae detection by organism specifi c culture [id number] NR Complete blood count (CBC) with automate d white blood cell (WBC) differential - 10/10/17 03:20 Blood leukocytes automated count (number/volume) 18.7 10*3/uL 4.3-11.0 Blood erythrocytes automated count (number/volume) 4.50 10*6/uL 4.35-5.85 Venous blood hemoglobin measurement (mass/volume) 13.6 g/dL 11.5-16.0 Blood hematocrit (volume fraction) 40 % 35-52 Automated erythrocyte mean corpuscular volume 88 [ foz_us] 80-99 Automated erythrocyte mean corpuscular h emoglobin (mass per erythrocyte) 30 pg 25-34 Automated erythrocyte mean corpuscular h emoglobin concentration measurement (mass/volume) 34 g/dL 32-36 Automated erythrocyte distribution width ratio 14. 1 % 10.0- 14.5 Automated blood platelet count (count/volume) 216 10*3/uL 130-400 Automated blood platelet mean volume measurement 11.3 [foz_us] 7.4-10.4 Automated blood neutrophils/100 leukocytes 84 % 42-75 Automated blood lymphocytes/100 leukocytes 11 % 12-44 Blood monocytes/100 leukocytes 4 % 0-12 Automated blood eosinophils/100 leukocytes 0 % 0-10 Automated blood basophils/100 leukocytes 0 % 0-10 Blood neutrophils automated count (number/volume) 15.7 10*3 1.8-7.8 Blood lymphocytes automated count (number/volume) 2.1 10*3 1.0-4.0 Blood monocytes automated count (number/volume) 0. 8 10*3 0.0-1.0 Automated eosinophil count 0.1 10*3/uL 0 .0-0.3 Automated blood basophil count (count/volume) 0.0 10*3/uL 0.0-0.1 Blood manual differential performed dete ction - 10/10/17 03:20 Blood monocytes/100 leukocytes 3 % NRG Manual blood segmented neutrophils/100 leukocytes 87 % NRG Blood band neutrophils/100 leukocytes 0 % NRG Manual blood lymphocytes/100 leukocytes 8 % NRG Manual eosinophils/100 leukocytes in nose 0 % NRG Manual blood basophils/100 leukocytes 0 % NRG Blood lymphocytes variant/100 leukocytes 2 % NRG Blood erythrocyte morphology finding identification NORMAL NRG Blood type T Indirect antibody screen pa eitan - 10/10/17 03:20 ABO+Rh group OP NRG Transfusion band number [id number] NRG Blood group antibody screen NEGATIVE NR G Complete blood count (CBC) with automate d white blood cell (WBC) differential - 10/11/17 05:15 Blood leukocytes automated count (number/volume) 12.0 10*3/uL 4.3-11.0 Blood erythrocytes automated count (number/volume) 3.17 10*6/uL 4.35-5.85 Venous blood hemoglobin measurement (mass/volume) 9.6 g/dL 11.5-16.0 Blood hematocrit (volume fraction) 29 % 35-52 Automated erythrocyte mean corpuscular volume 91 [ foz_us] 80-99 Automated erythrocyte mean corpuscular h emoglobin (mass per erythrocyte) 30 pg 25-34 Automated erythrocyte mean corpuscular h emoglobin concentration measurement (mass/volume) 33 g/dL 32-36 Automated erythrocyte distribution width ratio 14. 5 % 10.0- 14.5 Automated blood platelet count (count/volume) 144 10*3/uL 130-400 Automated blood platelet mean volume measurement 11.2 [foz_us] 7.4-10.4 Automated blood neutrophils/100 leukocytes 66 % 42-75 Automated blood lymphocytes/100 leukocytes 26 % 12-44 Blood monocytes/100 leukocytes 7 % 0-12 Automated blood eosinophils/100 leukocytes 1 % 0-10 Automated blood basophils/100 leukocytes 0 % 0-10 Blood neutrophils automated count (number/volume) 7.8 10*3 1.8-7.8 Blood lymphocytes automated count (number/volume) 3.1 10*3 1.0-4.0 Blood monocytes automated count (number/volume) 0. 9 10*3 0.0-1.0 Automated eosinophil count 0.1 10*3/uL 0 .0-0.3 Automated blood basophil count (count/volume) 0.0 10*3/uL 0.0-0.1 Encounters ACCT No. Visit Date/Time Discharge Status Pt. Type Provider Facility Loc./Unit Complaint [id number] 10/06/2019 15:02:00 020 23:59:59 CLS Outpatient SRAVAN MENDEZ APRN [facility] RAD ,ANATOM Y SCAN [id number] 10/10/2017 02:56:00 018 14:05:00 DIS Inpatient ULISES ENGLISH DO [facility] LDRP ACTIVE LABOR [id number] 09/19/2017 05:14:00 017 10:50:00 DIS Outpatient ULISES ENGLISH DO [facility] WSo VOMITING [id number] 09/19/2017 04:58:00 017 04:58:00 CAN ANJEL Atwood MD [facility] ER VOMITING,DIARRHEA [id number] 09/10/2017 16:49:00 017 23:59:59 CLS Outpatient ULISES ENGLISH DO [facility] LABNPT [id number] 12/25/2016 15:37:00 017 23:59:59 CLS Outpatient RACHELE CHAVEZ MD [facility] RAD ABN HUMAN [place] ADOTROPIN [id number] 12/20/2016 05:57:00 017 09:35:00 DIS Outpatient ULISES ENGLISH DO [facility] SDC INCOMPLETE [id number] 11/21/2016 16:39:00 017 23:59:59 CLS Outpatient RACHELE CHAVEZ MD [facility] RAD THREATENED
[2020-02-11] MEDS ORDERED: fentaNYL 2 mcg/ml BUPIVA 0.125 100 ML IV SCH (14:08)
[2020-02-11] MEDS ORDERED: LACTATED RINGERS 1,000 ML IV NR (14:08)
[2020-02-11] MEDS ORDERED: NALOXONE 0.4 MG/ML 1 ML (NARCAN) VIAL IV PRN (14:15)
[2020-02-11] MEDS ORDERED: CATHETER FLUSH 10 ML SYR IV PRN (14:15)
[2020-02-11] MEDS ORDERED: EPIDURAL (fentaNYL 2 MCG/ML BUPIVA 0.125%)100 ML BAG EPI SCH (14:15)
[2020-02-11] MEDS ORDERED: LIDOCAINE/EPI 2% 1:200,00 (XYLOCAINE) 20 ML VIAL ONE (16:42)
[2020-02-11] MEDS: OXYTOCIN PRE-MIX DRIP 500 ML IV SCH ×2 (17:12→17:45)
[2020-02-11] MEDS ORDERED: WITCH HAZEL(TUCKS) 40 EA JAR TOP PRN (17:30)
[2020-02-11] MEDS ORDERED: HYDROcodone/APAP 5 MG/325 MG (LORTAB) TAB PO PRN (17:30)
[2020-02-11] MEDS ORDERED: DIBUCAINE (NUPERCAINAL) 1% OINT 30 GM TOP PRN (17:30)
[2020-02-11] MEDS ORDERED: BENZOCAINE/MENTHOL (DERMOPLAST) 60 ML CAN TP PRN (17:30)
[2020-02-11] MEDS ORDERED: MEASLES,MUMPS,RUBELLA 1 EA INJ SQ ONE (17:30)
[2020-02-11] MEDS ORDERED: TETANUS,DIPTH,PERTUSS P/F (BOOSTRIX) 0.5 ML VIAL IM ONE (17:30)
--- NOTE | 2020-02-11 17:30 | OB Labor & Delivery Record ---
L&D History Date of Service Date of Service: February 11, 2020 History Expected Date of Delivery: Feb 22, 2020 Gestational Age in Weeks: 38 Hx : 3 Hx Para: 1 Complications Events: Routine care Operative Indications (Cesarea: N/A-Vaginal Delivery Intrapartal Events: None L&D Stage1 Stage One Onset of Labor - Date: February 11, 2020 Monitors and Tracing Monitor Mode: External Monitor Accelerations: Uniform Monitor Decelerations: None Health Records Technology Teacher Variability: Average (6-10) Short Term Variability: Present Presentation: Vertex Vital Signs VS - Last 72 Hours, by Label 02/11/20 02/11/20 02/11/20 02/11/20 13:40 13:45 13:49 13:52 Pulse 86 80 69 78 Resp 16 16 16 16 B/P (MAP) 118/77 (91) 124/78 (93) 128/76 (93) 120/61 (80) Pulse Ox 99 98 98 98 O2 Delivery Room Air Room Air Room Air Room Air 02/11/20 13:57 Pulse 89 Resp 16 B/P (MAP) 120/64 (82) Pulse Ox 98 O2 Delivery Room Air Rupture of Membranes Spontaneous Ruture of Membrane: Yes Amniotic Membrane Rupture Time: 13:00 Amniotic Membrane Fluid Desc.: Clear Vaginal Bleeding Description: Normal Show Induction/Anesthesia Epidural Cath Placement - Time: 1352 Progress/Notes Patient admitted 5 cm, AROM performed after admission and epidural received shortly after, she progressed with no further augmentation to complete and +2 station. L&D Stage2 Stage Two Stage II Date: February 11, 2020 Monitors and Tracing Monitor Mode: External Monitor Accelerations: Uniform Monitor Decelerations: Early Health Records Technology Teacher Variability: Average (6-10) Short Term Variability: Present Position: Right Occiput Anterior Presentation: Vertex Cord Descript/Complications Cord Vessel Description: 3 Vessels Delivery Type Delivery Method: Spontaneous Vaginal Anterior Shoulder: Right Episiotomy/Perineal Laceration Laceraction(s)/Extensions: Yes Episiotomy Description: Perineal Extension/lac, 2nd degree Degree (describe repair) 2nd degree perineal/vag laceration repaired using 3-0 rapide in usual fashion Condition of Infant Delivery 1 minute Comment: 9 5 minute Comment: 9 Notes Live male weight pending Condition of Condition of Infant: Living Exam: No Observed Abnormalities Resuscitation Resuscitation: N/A - Spontaneous Resp L&D Stage3 Stage Three Stage III Date: February 11, 2020 Pictocin Pitocin Administration Comment: 30 mu wide open at delivery of placenta Placenta Delivery Placenta Delivery: Spontaneous Delivery Summary Summary Estimated blood loss (mL): 250 250 Attending at delivery: Ulises English DO Condition of Delivery Examined: Cervix Examined, Uterus Explored Post Hemorrhage: No Condition of Mother stable Condition of Infant (s) stable ULISES ENGLISH DO February 11, 2020 17:30
[2020-02-11] MEDS: IBUPROFEN 600 MG (MOTRIN) TAB PO SCH (18:51)
--- NOTE | 2020-02-11 20:00 | NUR ---
Pt up standby to bathroom, pericare pads changed, pt unable void at this time, gown changed, transferred to pp unit room 309 vi wc per this rn, info packet explained, oriented to surroundings, no concerns noted, will cont to monitor.
[2020-02-12 00:22] VITALS: BP 109/63
[2020-02-12] MEDS: IBUPROFEN 600 MG (MOTRIN) TAB PO SCH ×3 (00:23→13:56)
[2020-02-12] MEDS: DOCUSATE SODIUM 100 MG (COLACE) CAP PO SCH ×2 (00:23→09:58)
[2020-02-12 04:35] VITALS: BP 102/67
[2020-02-12] MEDS ORDERED: PRENATAL VITAMIN 1 EA TAB PO SCH (07:00)
[2020-02-12 07:09] LABS: BASOPHILS % (AUTO) 0 % (0-10); EOSINOPHILS # (AUTO) 0.2 10^3/uL (0.0-0.3); EOSINOPHILS % (AUTO) 2 % (0-10); HEMATOCRIT 35 % (35-52); HEMOGLOBIN 11.6 G/DL (11.5-16.0); LYMPHOCYTES # (AUTO) 1.9 X 10^3 (1.0-4.0); LYMPHOCYTES % (AUTO) 16 % (12-44); MEAN CORPUSCULAR HEMOGLOBIN 30 PG (25-34); MEAN CORPUSCULAR HGB CONC 33 G/DL (32-36); MEAN CORPUSCULAR VOLUME 89 FL (80-99); MONOCYTES # (AUTO) 0.7 X 10^3 (0.0-1.0); MONOCYTES % (AUTO) 6 % (0-12); NEUTROPHILS # (AUTO) 8.7 X 10^3 (1.8-7.8); NEUTROPHILS % (AUTO) 76 % (42-75); PLATELET COUNT 177 10^3/uL (130-400); RED CELL DISTRIBUTION WIDTH 14.3 % (10.0-14.5); WHITE BLOOD COUNT 11.5 10^3/uL (4.3-11.0)
[2020-02-12 07:35] VITALS: BP 115/72
--- NOTE | 2020-02-12 07:38 | Discharge Inst-Women's Service ---
Discharge Inst-Women's Serv Depart Medication/Instructions New, Converted or Re-Newed RX: RX on Chart Final Diagnosis PPD 2 NVD Problems Reviewed?: Yes Consults/Follow Up Additional Follow Up: Yes Orders/Referrals Dr. English in 6 weeks Activity Activity: Activity as Tolerated Driving Instructions: No Driving for 1 Week NO SMOKING: NO SMOKING Nothing Inside Vagina: No Douching, No Impact, No Tampons Diet Discharge Diet: No Restrictions Symptoms to Report to : Bleeding Excessive, Pain Increased, Fever Over 101 Degrees F, Vaginal Bleeding Increase, Questions/Concerns For Any Problems or Questions: Contact Your Physician ULISES ENGLISH DO February 12, 2020 07:38
[2020-02-12] MEDS ORDERED: HYDR-83 PO (07:40)
[2020-02-12] MEDS ORDERED: DIBU30OI TOP (07:40)
[2020-02-12] MEDS ORDERED: IBUP-844 PO (07:40)
[2020-02-12] MEDS ORDERED: FERR325T18 PO (07:40)
[2020-02-12] MEDS ORDERED: DCS100C PO (07:40)
[2020-02-12] MEDS ORDERED: BENZ78AE2 TP (07:40)
[2020-02-12] MEDS ORDERED: FERROUS SULF 325 MG (IRON) TAB PO SCH (08:00)
--- NOTE | 2020-02-12 08:24 | Postpartum Progress Note ---
Note Note Day # 1 Subjective: Patient is without complaints. Ambulating, voiding. Tolerating a regular diet without nausea or vomiting. Normal lochia. Pain is well controlled with oral pain medications. Objective: Physical Exam: General - Alert and oriented, no apparent distress Abdomen - Soft, appropriately tender to palpation, non-distended, fundus firm at umbilicus Extremities - no edema, negative Derek's bilaterally Assessment: PPD 1 NVD Plan: Routine care. Encourage breast feeding. Encourage ambulation. Ferrous sulfate supplementation. Plan for discharge tomorrow Vitals - Labs Vital Signs - I&O Vital Signs Date Time Temp Pulse Resp B/P (MAP) Pulse Ox O2 Delivery O2 Flow Rate FiO2 02/12/20 04:35 36.6 71 18 102/67 (79) 98 Room Air 02/12/20 00:22 37.0 70 18 109/63 (78) 97 Room Air 02/11/20 18:50 36.5 88 18 121/66 (84) Room Air 02/11/20 18:35 83 18 115/59 (77) Room Air 02/11/20 18:20 84 18 118/62 (80) Room Air 02/11/20 18:15 36.8 02/11/20 18:05 80 18 118/64 (82) Room Air 02/11/20 17:50 36.7 70 18 119/63 (81) Room Air 02/11/20 17:35 36.9 73 18 116/67 (83) Room Air 02/11/20 17:06 92 18 153/68 (96) 98 Room Air 02/11/20 16:52 75 18 117/78 (91) 100 Room Air 02/11/20 16:34 63 18 117/62 (80) 97 Room Air 02/11/20 16:05 72 18 119/70 (86) 97 Room Air 02/11/20 15:54 36.4 02/11/20 15:50 68 18 118/66 (83) 97 Room Air 02/11/20 15:35 76 18 106/58 (74) 96 Room Air 02/11/20 15:22 64 18 101/50 (67) 97 Room Air 02/11/20 15:05 76 18 112/68 (83) 98 Room Air 02/11/20 14:50 77 18 108/61 (77) 98 Room Air 02/11/20 14:34 81 18 109/62 (78) 97 Room Air 02/11/20 14:30 69 18 108/55 (72) 97 Room Air 02/11/20 14:25 92 18 110/58 (75) 97 Room Air 02/11/20 14:21 91 18 112/56 (74) 96 Room Air 02/11/20 14:16 81 18 109/59 (76) 97 Room Air 02/11/20 14:11 93 18 112/56 (74) Room Air 02/11/20 14:05 96 18 127/83 (98) 97 Room Air 02/11/20 14:02 37.2 88 18 114/59 (77) Room Air 02/11/20 13:59 93 18 124/68 (86) 98 Room Air 02/11/20 13:57 89 16 120/64 (82) 98 Room Air 02/11/20 13:52 78 16 120/61 (80) 98 Room Air 02/11/20 13:49 69 16 128/76 (93) 98 Room Air 02/11/20 13:45 80 16 124/78 (93) 98 Room Air 02/11/20 13:40 86 16 118/77 (91) 99 Room Air 02/11/20 12:42 36.8 89 18 120/75 (90) 96 Room Air I & O 02/12/20 07:00 Intake Total 2000 ml Balance 2000 ml Labs Laboratory Tests 02/11/20 12:55: White Blood Count 11.3H, Red Blood Count 4.17L, Hemoglobin 12.6, Hematocrit 37, Mean Corpuscular Volume 89, Mean Corpuscular Hemoglobin 30, Mean Corpuscular Hemoglobin Concent 34, Red Cell Distribution Width 14.4, Platelet Count 212, Mean Platelet Volume 11.4H, Neutrophils (%) (Auto) 74, Lymphocytes (%) (Auto) 19, Monocytes (%) (Auto) 5, Eosinophils (%) (Auto) 2, Basophils (%) (Auto) 0, Neutrophils # (Auto) 8.3H, Lymphocytes # (Auto) 2.2, Monocytes # (Auto) 0.6, Eosinophils # (Auto) 0.2, Basophils # (Auto) 0.0 02/12/20 07:02: White Blood Count 11.5H, Red Blood Count 3.90L, Hemoglobin 11.6, Hematocrit 35, Mean Corpuscular Volume 89, Mean Corpuscular Hemoglobin 30, Mean Corpuscular Hemoglobin Concent 33, Red Cell Distribution Width 14.3, Platelet Count 177, Mean Platelet Volume 11.0H, Neutrophils (%) (Auto) 76H, Lymphocytes (%) (Auto) 16, Monocytes (%) (Auto) 6, Eosinophils (%) (Auto) 2, Basophils (%) (Auto) 0, Neutrophils # (Auto) 8.7H, Lymphocytes # (Auto) 1.9, Monocytes # (Auto) 0.7, E osinophils # (Auto) 0.2, Basophils # (Auto) 0.0 ULISES ENGLISH DO February 12, 2020 08:24
--- NOTE | 2020-02-12 13:04 | Anesthesia-Regional Post-Op ---
Regional Patient Condition Mental Status: Alert, Oriented x3 Circulation: Same as Pre-Op Headache: Absent Sensation: Full Recovery Motor Block: Absent Post Op Complications Complications None Follow Up Care/Instructions Patient Instructions None needed. Anesthesia/Patient Condition Patient is doing well, no complaints, stable vital signs, no apparent adverse anesthesia problems. No complications reported per nursing. CAMDEN LENNON CRNA February 12, 2020 13:04
[2020-02-12 13:59] VITALS: BP 121/58
[2020-02-12 19:00] VITALS: BP 121/58
--- NOTE | 2020-02-12 19:00 | NUR ---
SANDIE CHO demonstrates understanding of discharge instructions and accurately returns instructions upon questioning. Copy of Post-Discharge Instructions and Medication Discharge Instructions given to Sandie. SANDIE CHO is able to manage continuing needs after discharge. Patients belongings returned to patient. Skin dry and intact; no breakdown noted. Patient discharged from 3309- on 02/12/20 at 1900. SANDIE CHO left floor via ambulatory, accompanied by and women services staff..
== END 2020-02-12 19:00 | disposition home or self-care (01) | DRG 807 ==
LOC: LDRP 12:40
PROVIDERS: ADMIT Obstetrics & Gynecology; ATTEND Obstetrics & Gynecology
PROC: 10E0XZZ Delivery of Products of Conception, External Approach (ICD-10-PCS; principal; 2020-02-11)
PROC: 0KQM0ZZ Repair Perineum Muscle, Open Approach (ICD-10-PCS; 2020-02-11)
DX: O70.1 Second degree perineal laceration during delivery (principal); Z37.0 Single live birth; Z3A.38 38 weeks gestation of pregnancy; Z23 Encounter for immunization
CPT/HCPCS: 36415; 85025; 86850; 86900; 86901; 90715; 99212

== ENCOUNTER → 2023-03-12 | Outpatient (CLI) | payer BC ==
[~2023-03-12] MED LIST changes: +BENZ78AE5 TP; +DIBU30OI TOP; +DOCU-239 PO; +IBUP-844 PO
--- NOTE | 2023-03-12 15:02 | Diagnostic Imaging Report ---
INDICATION: patient, survey. TECHNIQUE: Multiple real-time grayscale images were obtained over the gravid uterus. COMPARISON: None during this . FINDINGS: A single live intrauterine fetus is seen measuring 20 weeks 0 days in size by composite measurements. Fetus is in breech presentation at this time. Amniotic fluid index is 9.5 cm. Placenta is anterior with no evidence of previa. heart rate is 144 BPM. Cervical length is 4.0 cm. Distance from the tip of the placenta to the internal os was 3.8 cm. survey demonstrated normal-appearing kidneys and bladder. Normal-appearing stomach was seen. Intracranial ventricles appeared normal. Four-chamber heart view appeared normal. Three-vessel cord and cord insertion appeared normal. The spine was not well seen due to positioning. Biometrical measurements are as follows: Biparietal 4.49 cm, age 19 weeks 5 days. Head circumference 17.28 cm, age 19 weeks 6 days. Abdominal circumference 14.72 cm, age 20 weeks 1 days. Femur length 3.25 cm, age 20 weeks 1 days. Sonographic estimate age: 20 weeks 0 days. Sonographic estimated date of delivery: 07/27/23. Estimated Weight: 328 gm (+/- 48 gm). LMP percentile: 25%. heart rate: 144 beats per minute. number: 1 of 1. IMPRESSION: Single live intrauterine fetus measuring 20 weeks 0 days in size. There was no detectable abnormality, although views of the spine were limited. Consider limited follow-up, if clinically warranted. Dictated by: Dictated on workstation # [id number]
== END ==
LOC: RAD 09:46
PROVIDERS: ATTEND Nurse Practitioner Women's Health
DX: Z36.1 Encounter for antenatal screening for raised alphafetoprotein level (principal); Z3A.20 20 weeks gestation of pregnancy
CPT/HCPCS: 76805

== ENCOUNTER 2023-07-18 11:45 | Inpatient (IN) | payer BC ==
[~2023-07-18] VITALS: Ht 162.6 cm; Wt 88.1 kg
[2023-07-18] VITALS (38 sets, daily range): BP systolic 103–139; BP diastolic 52–86
--- OUTSIDE RECORDS SUMMARY | 2023-07-18 11:49 | XMS REPORT | Clinical Summary ---
Author Author [facility] Organization [facility] Address Unknown Phone Unavailable Care Team Providers Care Marketing Sales Consultant Name Role Phone Self, Referral PCP Unavailable Source Comments Some departments are not documenting in the electronic medical record. If you do not see the information that you expected, contact Release of Information in the Health Information Management department at [phone] for further assistance in locating additional records.[facility] Social History Tobacco Use Types Packs/Day Years Used Date Smoking Tobacco: Never Assessed Sex and Gender Information Value Date Recorded Sex Assigned at Not on file Gender Identity Not on file Sexual Orientation Not on file Plan of Treatment Health Maintenance Due Date Last Done Comments COVID-19 VACCINE (#1) 04/03/1991 HIV SCREENING 2005 DTAP/TDAP VACCINES (1 - Tdap) 2008 HEPATITIS C SCREENING 2008 PHYSICAL (COMPREHENSIVE) EXAM 2008 CERVICAL CANCER SCREENING 2011 DEPRESSION SCREENING 09/23/2022 INFLUENZA VACCINE (#1) 2023 PNEUMOCOCCAL VACCINE 0-64 YRS Aged Out No longer eligible based on patient's age to complete this topic Care Teams Marketing Sales Consultant Relationship Specialty Start Date End Date Self, Referral PCP - General 06/04/17
--- OUTSIDE RECORDS SUMMARY | 2023-07-18 11:49 | XMS REPORT ---
Author Author [facility] Address Unknown Phone Unavailable Care Team Providers Care Space Systems Operations Craftsman Name Role Phone DAVIDLINA ZAMAN Unavailable ALLERGIES Allergen (clinical drug ingredient) Drug/Non Drug Allergy documented on EMR Reaction Allergy Type Onset Date Status cefixime Suprax([facility] Code:[address]-17) hives Drug Allergy Active ENCOUNTERS from 1990 to 2023-06-14 Encounter Location Date Provider Diagnosis [facility] [address] [facility] [id number] [address] Jun, LINA WILLIAMSON Encounter for immunization Z23 IMMUNIZATIONS Vaccine Route Administration Date Status PRIVATE TDAP (BOOSTRIX) IM Intramuscular Jul 11, 2015 Administered FLUARIX QUAD (3 & UP)-GSK-2014 IM Intramuscular Jun 232014 Administered FLUARIX QUAD P-FREE 3 AND UP .50 2015 IM Intramuscular Jul 03, 2016 Administered PRIVATE FLULAVAL QUAD 0.5ML (6 MO AND UP) 2019 IM Intramuscular Jun 27, 2020 Administered Booster HRSA MODERNA, COVID- 19, 0.25mL IM Intramuscular Aug 04, 2021 Administered PRIVATE FLU 22-23 (FLULAVAL) AGE 6MO AND UP IM Intramuscular Jul 18, 2022 Administered PRIVATE FLULAVAL QUAD 0.5ML (6 MO AND UP) 2020 IM Intramuscular Jun 26, 2021 Administered PRIVATE FLULAVAL QUAD 0.5ML (6 MO AND UP) 2018 IM Intramuscular Jul 06, 2019 Administered PRIVATE FLULAVAL QUAD 0.5ML (6 MO AND UP) 2018 IM Intramuscular Jul 14, 2018 Administered SOCIAL HISTORY Sex Assigned At : Social History Observation Description Sex Assigned At Unknown PHQ2 Question Answer Notes In the last 2 weeks, how oft en have you had little interest or pleasure in doing things? Not at all In the last 2 weeks, how oft en have you been feeling down, depressed, or hopeless? Not at all Total PHQ2 Score 0 REASON FOR REFERRAL No Information MEDICATIONS Medication SIG (Take, Route, Fr equency, Duration) Notes Start Date End Date Status Amoxicillin 500 MG 1 capsule Orally sridevi ry 8 hrs for 10 day(s) Jul, Active REASON FOR VISIT Flu shot [facility] MENTAL STATUS No Information ASSESSMENTS Encounter Date Diagnosis Assessment Notes Treatment Notes Treatment Clinical Notes Jun, Encounter for immunization (ICD-10 - Z23) PLAN OF TREATMENT Medication Medication Name Sig Start Date Stop Date Amoxicillin 500 MG 1 capsule Orally every 8 hrs for 10 day(s) Jul, Insurance Providers Payer Name Payer Address Payer Phone Insured Name Patient Relationship to Insured Coverage Start Date Coverage End Date Subscriber Number Group Number [place] [id number] [facility] [id number] Marcus Morrell Spouse - patient is the spouse of the insured [id number]
[2023-07-18] MEDS ORDERED: fentaNYL 2 mcg/ml BUPIVA 0.125 100 ML ONE (12:24)
[2023-07-18] MEDS ORDERED: LACTATED RINGERS 1,000 ML 1,000 ML IV ONE ×2 (12:25→15:45)
[2023-07-18 12:27] LABS: BASOPHILS # (AUTO) 0.1 10^3/uL (0.0-0.1); BASOPHILS % (AUTO) 1 % (0-10); EOSINOPHILS # (AUTO) 0.1 10^3/uL (0.0-0.3); EOSINOPHILS % (AUTO) 1 % (0-10); HEMATOCRIT 38 % (35-52); HEMOGLOBIN 12.8 g/dL (11.5-16.0); LYMPHOCYTES # (AUTO) 1.8 10^3/uL (1.0-4.0); LYMPHOCYTES % (AUTO) 18 % (12-44); MEAN CORPUSCULAR HEMOGLOBIN 31 pg (25-34); MEAN CORPUSCULAR HGB CONC 34 g/dL (32-36); MEAN CORPUSCULAR VOLUME 90 fL (80-99); MEAN PLATELET VOLUME 11.3 fL (9.0-12.2); MONOCYTES # (AUTO) 0.6 10^3/uL (0.0-1.0); MONOCYTES % (AUTO) 5 % (0-12); NEUTROPHILS # (AUTO) 7.9 10^3/uL (1.8-7.8); NEUTROPHILS % (AUTO) 75 % (42-75); PLATELET COUNT 195 10^3/uL (130-400); WHITE BLOOD COUNT 10.5 10^3/uL (4.3-11.0)
[2023-07-18] MEDS ORDERED: D5 LR 1,000 ML IV SOLN 1,000 ML IV SCH (12:30)
[2023-07-18] MEDS ORDERED: LACTATED RINGERS 1,000 ML 500 ML IV PRN (12:30)
[2023-07-18] MEDS ORDERED: LIDOCAINE 2% w/EPI 1:200,000 20 ML VIAL INJ PRN (12:30)
[2023-07-18] MEDS ORDERED: fentaNYL INJECTION 100 MCG/2 ML VIAL ONE (13:08)
[2023-07-18] MEDS ORDERED: LIDOCAINE PF 2% 5 ML VIAL ONE (13:08)
[2023-07-18] MEDS ORDERED: CATHETER FLUSH 10 ML SYR IV SCH ×2 (14:00→22:00)
[2023-07-18] MEDS ORDERED: NALOXONE 0.4 MG/ML 1 ML VIAL IV PRN ×2 (15:45→16:15)
[2023-07-18] MEDS ORDERED: CATHETER FLUSH 10 ML SYR IV PRN (15:45)
[2023-07-18] MEDS ORDERED: fentaNYL 2 mcg/ml BUPIVA 0.125 100 ML EPI SCH (15:45)
[2023-07-18] MEDS ORDERED: OXYTOCIN DRIP PRE-MIX 500 ML IV ONE ×2 (15:47→16:21)
[2023-07-18] MEDS: OXYTOCIN DRIP PRE-MIX 500 ML IV SCH ×2 (15:58→16:29)
[2023-07-18] MEDS ORDERED: MEASLES, MUMPS, RUBELLA VACCINE (MMR) SQ ONE (16:15)
[2023-07-18] MEDS ORDERED: BENZOCAINE/MENTHOL (DERMOPLAST) 56 ML CAN TP PRN (16:15)
[2023-07-18] MEDS ORDERED: WITCH HAZEL(TUCKS) 40 EA JAR TOP PRN (16:15)
[2023-07-18] MEDS ORDERED: DIBUCAINE 1% OINTMENT 28 GM TUBE TOP PRN (16:15)
[2023-07-18] MEDS ORDERED: Tetanus/Diphtheria/Pertussis (Acell) ADULT Vaccine 0.5 ML IM ONE (16:15)
--- NOTE | 2023-07-18 16:15 | OB Labor & Delivery Record ---
L&D History Date of Service Date of Service: Jul 18, 2023 History Expected Date of Delivery: Jul 27, 2023 Gestational Age in Weeks: 38 Complications Events: Routine care Operative Indications (Cesarea: N/A-Vaginal Delivery Intrapartal Events: None L&D Stage1 Stage One Onset of Labor - Date: Jul 18, 2023 Monitors and Tracing Monitor Accelerations: Uniform Monitor Decelerations: None Engagement Specialist Variability: Average (6-10) Short Term Variability: Present Presentation: Vertex Vital Signs VS - Last 72 Hours, by Label 07/18/23 11:51 Temp 37.0 Pulse 83 Resp 18 Pulse Ox 98 O2 Delivery Room Air Rupture of Membranes Spontaneous Ruture of Membrane: No Amniotic Membrane Rupture Time: 12:30 Amniotic Membrane Fluid Desc.: Clear Vaginal Bleeding Description: Normal Show Induction/Anesthesia Epidural Cath Placement - Time: 1303 Progress/Notes Patient admitted in active labor, AROM performed followed by epidural placement. She rapidly progressed to complete and + 2 station. L&D Stage2 Stage Two Stage II Date: Jul 18, 2023 Monitors and Tracing Monitor Accelerations: Uniform Monitor Decelerations: Variable Engagement Specialist Variability: Average (6-10) Short Term Variability: Present Position: Right Occiput Anterior Presentation: Vertex Signs of Distress by FHT Signs of Distress nuchal cord reduced x 2 Cord Descript/Complications Cord Vessel Description: 3 Vessels Delivery Type Delivery Method: Spontaneous Vaginal Anterior Shoulder: Left Episiotomy/Perineal Laceration Episiotomy Description: Perineal Extension/lac, 1st degree Degree (describe repair) repaired using 3-0 rapide vicryl in usual fashion Condition of Delivery 1 minute Comment: 8 5 minute Comment: 9 Notes Live female weight pending Condition of Infant Condition of Infant: Living Exam: No Observed Abnormalities Resuscitation Resuscitation: N/A - Spontaneous Resp L&D Stage3 Stage Three Stage III Date: Jul 18, 2023 Pictocin Pitocin Administration Comment: 30 mu wide open after delivery of placenta Placenta Delivery Placenta Delivery: Spontaneous Delivery Summary Summary Estimated blood loss (mL): 350 Attending at delivery: Ulises English DO Condition of Delivery Examined: Cervix Examined, Uterus Explored Post Hemorrhage: No Condition of Mother stable Condition of (s) stable ULISES ENGLISH DO Jul 18, 2023 16:15
--- NOTE | 2023-07-18 16:17 | Discharge Inst-Women's Service ---
Discharge Inst-Women's Serv Depart Medication/Instructions New, Converted or Re-Newed RX: Transmitted to Pharmacy Final Diagnosis PPD 1 NVD Problems Reviewed?: Yes Consults/Follow Up Additional Follow Up: Yes Orders/Referrals Dr. English in 6 weeks Activity Activity: Activity as Tolerated Driving Instructions: No Driving for 1 Week NO SMOKING: NO SMOKING Nothing Inside Vagina: No Douching, No [place], No Tampons Diet Discharge Diet: No Restrictions Symptoms to Report to : Bleeding Excessive, Pain Increased, Fever Over 101 Degrees F, Vaginal Bleeding Increase, Questions/Concerns For Any Problems or Questions: Contact Your Physician ULISES ENGLISH DO Jul 18, 2023 16:17
--- NOTE | 2023-07-18 16:17 | History & Physical-OB ---
OB - Chief Complaint & HPI Date/Time Date of Admission: Date of Admission: Jul 18, 2023 at 11:45 Date seen by a Provider: Jul 18, 2023 Time Seen by a Provider: 12:00 Chief Complaint/History OB-Reason for Admission/Chief: Onset of Labor Hx : 3 Hx Para: 2 Expected Date of Delivery: Jul 27, 2023 Gestational Age in Weeks: 38 Gestational Age in Days: 5 Other reason for admission: Patient admitted in active labor Admission Nurse Assessment Rev: Yes Allergies and Home Medications Allergies Coded Allergies: No Known Drug Allergies (Unverified , 09/19/17) Patient Home Medication List Home Medication List Reviewed: Yes Pnv95/Ferrous Fumarate/FA ( [place]) 1 Each Tablet, 1 EACH PO DAILY, (Reported) Entered as Reported by: JENNIFER BHAKTA on 12/20/16740 Last Action: Reviewed Discontinued Medications Benzocaine/Menthol (Dermoplast Pain Relieving [place]) 78 Gm Aerosol, 0 ML TP UD PRN for PAIN- SEE INSTRUCTIONS Discontinued Reason: No Longer Taking Prescribed by: ULISES ENGLISH on 02/12/20739 Last Action: Discontinued Dibucaine (Dibucaine) 30 Gm Oint, 0 GM TOP UD PRN for PAIN- SEE INSTRUCTIONS Discontinued Reason: No Longer Taking Prescribed by: ULISES ENGLISH on 02/12/20739 Last Action: Discontinued Docusate Sodium (Dok) 100 Mg Capsule, 100 MG PO BID PRN for CONSTIPATION-1ST LINE Discontinued Reason: No Longer Taking Prescribed by: ULISES ENGLISH on 02/12/20739 Last Action: Discontinued Ferrous Sulfate (Ferrous Sulfate) 325 Mg Tablet, 325 MG PO DAILY@0800 Discontinued Reason: No Longer Taking Prescribed by: ULISES ENGLISH on 02/12/20739 Last Action: Discontinued Hydrocodone/Acetaminophen (Hydrocodone-Acetamin 5-325 mg) 1 Each Tablet, 1 TAB PO Q4H PRN for PAIN-MODERATE (5-7) Discontinued Reason: No Longer Taking Prescribed by: ULISES ENGLISH on 02/12/20739 Last Action: Discontinued Ibuprofen (Ibu) 600 Mg Tablet, 600 MG PO Q6HR Discontinued Reason: No Longer Taking Prescribed by: ULISES ENGLISH on 02/12/20739 Last Action: Discontinued OB - History Hx of Present Care: Yes Ultrasounds: Normal mid trimester US Obstetrical Complications: None Medical Complications: None Delivery History Hx Blood Disorders: No Patient Past Medical History n/a Immunizations Influenza Vaccine Up-to-Date: Yes; Up-to-Date OB - Admission Exam Physical Exam Vitals: Vital Signs 07/18/23 11:51 Temp 37.0 Pulse 83 Resp 18 Pulse Ox 98 O2 Delivery Room Air HEENT: NCAT Heart: Rhythm Normal Lungs: Clear Abdomen: Gravid Extremities: Normal Reflexes: Normal Cervical Dilatation: 5cm Effacement: 75% Station: -1 Membranes: Intact Heart Rate: 130's Accelerations: Accelerations Present Decelerations: Early Decelerations Short Term Variability: Present Forensic Document Examiner Variability: Average (6-25) Contractions on Admission: 6-10 Minutes Apart Intensity: Firm Labs Laboratory Tests Test 07/18/23 12:00 Range/Units White Blood Count 10.5 4.3-11.0 10^3/uL Red Blood Count 4.19 3.80-5.11 10^6/uL Hemoglobin 12.8 11.5-16.0 g/dL Hematocrit 38 35-52 % Mean Corpuscular Volume 90 80-99 fL Mean Corpuscular Hemoglobin 31 25-34 pg Mean Corpuscular Hemoglobin Concent 34 32-36 g/dL Red Cell Distribution Width 14.0 10.0-14.5 % Platelet Count 195 130-400 10^3/uL Mean Platelet Volume 11.3 9.0-12.2 fL Immature Granulocyte % (Auto) 1 % Neutrophils (%) (Auto) 75 42-75 % Lymphocytes (%) (Auto) 18 12-44 % Monocytes (%) (Auto) 5 0-12 % Eosinophils (%) (Auto) 1 0-10 % Basophils (%) (Auto) 1 0-10 % Neutrophils # (Auto) 7.9 H 1.8-7.8 10^3/uL Lymphocytes # (Auto) 1.8 1.0-4.0 10^3/uL Monocytes # (Auto) 0.6 0.0-1.0 10^3/uL Eosinophils # (Auto) 0.1 0.0-0.3 10^3/uL Basophils # (Auto) 0.1 0.0-0.1 10^3/uL Immature Granulocyte # (Auto) 0.1 0.0-0.1 10^3/uL Syphilis Total Antibody Negative Negative OB - Assessment/Plan/Diagnosis Assessment Assessment: active labor Admission Dx 32 yo @ 38 weeks Active labor GBS neg Admission Status: Inpatient Order (span 2 midnights) Reason for Inpatient Admission: term active labor Plan Plan: Expectant Management ULISES ENGLISH DO Jul 18, 2023 16:17
[2023-07-18] MEDS ORDERED: DOCU100C37 PO (16:18)
[2023-07-18] MEDS ORDERED: BENZ78AE5 TP (16:18)
[2023-07-18] MEDS ORDERED: FERR325T24 PO (16:18)
[2023-07-18] MEDS ORDERED: IBUP-844 PO (16:18)
[2023-07-18] MEDS ORDERED: DIBU30OI TOP (16:18)
[2023-07-18] MEDS ORDERED: ACET-93 PO (16:18)
[2023-07-18] MEDS: ACETAMINOPHEN 500 MG TABLET PO SCH (18:17)
[2023-07-18] MEDS: IBUPROFEN 600 MG TABLET PO SCH (18:17)
[2023-07-18] MEDS: DOCUSATE SODIUM 100 MG CAPSULE PO SCH (21:16)
[2023-07-19 00:50] VITALS: BP 116/72
[2023-07-19] MEDS: IBUPROFEN 600 MG TABLET PO SCH ×3 (00:51→12:55)
[2023-07-19] MEDS: ACETAMINOPHEN 500 MG TABLET PO SCH ×3 (00:51→12:55)
[2023-07-19 04:50] VITALS: BP 100/64
[2023-07-19 05:38] LABS: BASOPHILS % (AUTO) 0 % (0-10); EOSINOPHILS # (AUTO) 0.1 10^3/uL (0.0-0.3); EOSINOPHILS % (AUTO) 1 % (0-10); HEMATOCRIT 33 % (35-52); HEMOGLOBIN 11.1 g/dL (11.5-16.0); LYMPHOCYTES % (AUTO) 18 % (12-44); MEAN CORPUSCULAR HEMOGLOBIN 30 pg (25-34); MEAN CORPUSCULAR HGB CONC 33 g/dL (32-36); MEAN CORPUSCULAR VOLUME 90 fL (80-99); MEAN PLATELET VOLUME 11.1 fL (9.0-12.2); MONOCYTES # (AUTO) 0.8 10^3/uL (0.0-1.0); MONOCYTES % (AUTO) 7 % (0-12); NEUTROPHILS # (AUTO) 8.5 10^3/uL (1.8-7.8); NEUTROPHILS % (AUTO) 74 % (42-75); PLATELET COUNT 182 10^3/uL (130-400); WHITE BLOOD COUNT 11.5 10^3/uL (4.3-11.0)
[2023-07-19] MEDS ORDERED: PRENATAL VITAMIN TABLET PO SCH (07:00)
--- NOTE | 2023-07-19 07:53 | Postpartum Progress Note ---
Note Note Day #1 Subjective: Patient is without complaints. Ambulating, voiding. Tolerating a regular diet without nausea or vomiting. Normal lochia. Pain is well controlled with oral pain medications. Physical Exam: General - Alert and oriented, no apparent distress Abdomen - Soft, appropriately tender to palpation, non-distended, fundus firm at umbilicus Extremities - no edema, negative Derek's bilaterally Assessment: Post- day # 1, status post vaginal delivery. Recovering well, hemodynamically stable Plan: Routine care. Encourage breast feeding. Encourage ambulation. Ferrous sulfate supplementation. Plan for discharge today Vitals - Labs Vital Signs - I&O Vital Signs Date Time Temp Pulse Resp B/P (MAP) Pulse Ox O2 Delivery O2 Flow Rate FiO2 07/19/23 04:50 36.2 77 16 100/64 (76) 99 Room Air 07/19/23 00:50 36.0 85 18 116/72 (87) 97 Room Air 07/18/23 21:14 36.2 80 18 108/54 (72) 96 Room Air 07/18/23 18:18 92 18 115/56 (75) Room Air 07/18/23 18:04 82 18 108/56 (73) Room Air 07/18/23 17:49 90 18 110/57 (74) Room Air 07/18/23 17:34 102 18 118/64 (82) Room Air 07/18/23 17:19 88 18 121/54 (76) Room Air 07/18/23 17:05 36.9 94 18 139/71 (93) Room Air 07/18/23 16:49 96 18 124/71 (88) Room Air 07/18/23 16:35 37.0 90 18 134/70 (91) Room Air 07/18/23 16:18 36.9 76 18 113/62 (79) Room Air 07/18/23 16:04 37.2 74 18 120/56 (77) Room Air 07/18/23 15:50 115 20 129/81 (97) Room Air 07/18/23 15:35 85 18 114/71 (85) 99 Room Air 07/18/23 15:20 78 18 120/77 (91) 98 Room Air 07/18/23 15:05 70 18 115/70 (85) 98 Room Air 07/18/23 14:50 69 18 112/62 (79) 96 Room Air 07/18/23 14:35 77 18 103/55 (71) 97 Room Air 07/18/23 14:20 72 18 106/55 (72) 96 Room Air 07/18/23 14:05 75 18 108/52 (70) 96 Room Air 07/18/23 13:50 77 18 124/58 (80) 96 Room Air 07/18/23 13:45 75 18 112/62 (79) 96 Room Air 07/18/23 13:43 75 18 112/61 (78) Room Air 07/18/23 13:40 80 18 116/62 (80) 96 Room Air 07/18/23 13:37 83 18 110/59 (76) Room Air 07/18/23 13:34 87 18 117/68 (84) 97 Room Air 07/18/23 13:30 79 18 121/66 (84) 96 Room Air 07/18/23 13:28 80 18 116/61 (79) Room Air 07/18/23 13:25 85 18 126/66 (86) 96 Room Air 07/18/23 13:22 101 18 118/64 (82) Room Air 07/18/23 13:20 83 18 110/59 (76) 96 Room Air 07/18/23 13:16 84 18 132/86 (101) 96 Room Air 07/18/23 13:13 106 18 132/78 (96) Room Air 07/18/23 13:10 91 18 126/73 (90) 96 Room Air 07/18/23 13:04 85 18 117/60 (79) 98 Room Air 07/18/23 13:01 94 18 127/70 (89) 99 Room Air 07/18/23 12:58 91 127/68 (87) 07/18/23 12:55 86 18 130/71 (90) 99 Room Air 07/18/23 11:51 37.0 83 18 98 Room Air I & O 07/19/23 07:00 Intake Total 2000 ml Balance 2000 ml Labs Laboratory Tests 07/18/23 12:00: White Blood Count 10.5, Red Blood Count 4.19, Hemoglobin 12.8, Hematocrit 38, Mean Corpuscular Volume 90, Mean Corpuscular Hemoglobin 31, Mean Corpuscular Hemoglobin Concent 34, Red Cell Distribution Width 14.0, Platelet Count 195, Mean Platelet Volume 11.3, Immature Granulocyte % (Auto) 1, Neutrophils (%) (Auto) 75, Lymphocytes (%) (Auto) 18, Monocytes (%) (Auto) 5, Eosinophils (%) (Auto) 1, Basophils (%) (Auto) 1, Neutrophils # (Auto) 7.9H, Lymphocytes # (Auto) 1.8, Monocytes # (Auto) 0.6, Eosinophils # (Auto) 0.1, Basophils # (Auto) 0.1, Immature Granulocyte # (Auto) 0.1, Syphilis Total Antibody Negative 07/19/23 05:21: White Blood Count 11.5H, Red Blood Count 3.72L, Hemoglobin 11.1L, Hematocrit 33L , Mean Corpuscular Volume 90, Mean Corpuscular Hemoglobin 30, Mean Corpuscular Hemoglobin Concent 33, Red Cell Distribution Width 13.8, Platelet Count 182, Mean Platelet Volume 11.1, Immature Granulocyte % (Auto) 1, Neutrophils (%) (Auto) 74, Lymphocytes (%) (Auto) 18, Monocytes (%) (Auto) 7, Eosinophils (%) (Auto) 1, Basophils (%) (Auto) 0, Neutrophils # (Auto) 8.5H, Lymphocytes # (Auto ) 2.0, Monocytes # (Auto) 0.8, Eosinophils # (Auto) 0.1, Basophils # (Auto) 0.0, Immature Granulocyte # (Auto) 0.1 SRAVAN MENDEZ APRN Jul 19, 2023 07:53
[2023-07-19] MEDS ORDERED: FERROUS SULFATE 325 MG (IRON) TABLET PO SCH (09:00)
[2023-07-19 10:32] VITALS: BP 138/81
--- NOTE | 2023-07-19 11:21 | Anesthesia-Regional Post-Op ---
Regional Patient Condition Mental Status: Alert, Oriented x3 Circulation: Same as Pre-Op Headache: Absent Sensation: Full Recovery Motor Block: Absent Post Op Complications Complications None Follow Up Care/Instructions Patient Instructions None needed. Anesthesia/Patient Condition Patient is doing well, no complaints, stable vital signs, no apparent adverse anesthesia problems. No complications reported per nursing. CHERISE MCLAUGHLIN DO Jul 19, 2023 11:21
[2023-07-19] MEDS: DOCUSATE SODIUM 100 MG CAPSULE PO SCH (12:54)
[2023-07-19 15:43] VITALS: BP 108/68
== END 2023-07-19 17:40 | disposition home or self-care (01) | DRG 807 ==
LOC: LDRP 11:45
PROVIDERS: ADMIT Obstetrics & Gynecology; ATTEND Obstetrics & Gynecology
PROC: 10E0XZZ Delivery of Products of Conception, External Approach (ICD-10-PCS; principal; 2023-07-18)
PROC: 10907ZC Drainage of Amniotic Fluid, Therapeutic from Products of Conception, Via Natural or Artificial Opening (ICD-10-PCS; 2023-07-18)
PROC: 0HQ9XZZ Repair Perineum Skin, External Approach (ICD-10-PCS; 2023-07-18)
DX: O69.81X0 Labor and delivery complicated by cord around neck, without compression, not applicable or unspecified (principal); Z37.0 Single live birth; Z3A.38 38 weeks gestation of pregnancy; O70.0 First degree perineal laceration during delivery
CPT/HCPCS: 36415; 85025; 86780; 86850; 86900; 86901